=== PATIENT | female | born 1955 | race Caucasian/White ===

== ENCOUNTER 2019-04-11 02:41 | Emergency (ER) | payer MEDICARE, BC ==
--- OUTSIDE RECORDS SUMMARY | 2019-04-11 02:47 | XMS REPORT | Continuity of Care Document ---
:1955 External Reference #:[id number] Author Name Sheltonlarry Georgie Care Team Providers Name Role Phone Nathalie Barrientos MD Primary Care Physician Unavailable Payers Date Identification Numbers Payment Provider Subscriber Effective: 2018 Policy Number: [id number] Medicare June Laboy PayID: [id number] [address] [place] [address] Policy Number: [id number] [facility] June Laboy PayID: [id number] [address] [place] [address] Effective: 2018 Policy Number: [id number] Medicare June Laboy Expires: 2018 PayID: [id number] [address] [place] [address] Expires: 2018 Policy Number: [id number] Medicare June Laboy PayID: [id number] [address] [facility] [place] [address] Problems Active Problems Provider Date Benign hypertension Claudia Orellana N.P. Onset: 08/14/2016 Note: as of 07/10/18 no consequences Anxiety state Gucci Rice M.D. Onset: 12/04/2015 Pure hypercholesterolemia Gucci Rice M.D. Onset: 12/04/2015 Localized, primary osteoarthritis of the Farideh Ruchi Amos Onset: 02/16/2016 pelvic region and thigh Spinal stenosis of lumbar region Bishnu Whitmore M.D. Onset: 02/26/2016 Note: had surgery Jul [address] Whitmore; in 2018 taking ibuprofen since 2007 and 800 TID since SepMay 2018; started with pain clinic second time Jun 2018 Mucopyocele Bishnu Whitmore M.D. Onset: 07/25/2016 Localized, primary osteoarthritis of the Juan Daniel Eric MD Onset: 04/02/2018 shoulder region Injury of shoulder region Juan Daniel Eric MD Onset: 09/15/2018 Family History Date Family Member(s) Observation Comments General Diabetes General Breast Cancer Father Hypercholesterolemia Age 83 Father due to Heart Disease () Mother due to Liver Disease () - DM Type II Age 66 Children 4 2 Daughters 2 Sons - 1 Son with Crohn's Disease Siblings 4 2 Sisters - High Cholesterol 1 Brother - High Cholesterol 1 Brother - MVA at age 19 Social History Type Date Description Comments Sex Unknown Marital Status Lives With Occupation Retired [employer] de[employer] ETOH Use Occasionally consumes alcohol Tobacco Use Start: Unknown Patient has never smoked Recreational Drug Use Denies Drug Use Smoking Status Reviewed: 04/01/19 Patient has never smoked Exercise Type/Frequency Exercises sporadically walks on occ; some yoga stretching Allergies, Adverse Reactions, Alerts Active Allergies Reaction Severity Comments Date Bactrim Nausea and Vomiting 10/25/2015 Medications Active Medications SIG Qnty Indications Ordering Date Provider Amoxicillin 1 three times a 30caps H66.92 Gucci Ivey 04/01/2019 500mg day for 10 days Ruchi Rice Capsules Atorvastatin Calcium take 1 tablet by 90tabs Claudia Orellana, 03/30/2019 40mg mouth at bedtime N.P. Tablets Ferrous Sulfate 1 by mouth twice 60tabs Claudia Orellana, 12/08/2018 325(65Fe) a day N.P. mg Tablets Omeprazole one on an empty 30caps Rojelio Redding 06/03/2018 40mg Capsules stomach in MD DR silverio Gil Escitalopram Oxalate Take 1 Tablet By 30tabs Claudia Orellana, 12/23/2017 10mg Mouth Once Daily N.P. Tablets Transderm-Scop (1.5 apply one patch 10units Hector Smith NP 08/18/2017 MG) behind ear every 1mg/3Days Patches 72 hours 72HR Ramipril take 1 capsule 90caps Claudia Orellana, 12/23/2016 10mg Capsules by mouth once N.P. daily Tramadol HCL 1 by mouth every 90tabs M48.06 Claudia Orellana, 03/07/2016 50mg Tablets 6 hours as N.P. needed pain Advil 4 tabs tid Unknown 02/16/2013 200mg Tablets Iron (Ferrous once daily Unknown Gluconate) 256(28Fe) mg Tablets Calcium + D Unknown Multivitamins 1 by mouth every Unknown Capsules day Lotemax as needed Unknown 0.5% Gel Ativan 1 by mouth twice 60tabs Claudia Reyna, 1mg Tablets a day as needed N.P. anxiety Valacyclovir HCL 1 by mouth daily 30tabs Claudia Varn, 1gm N.P. Tablets History Medications Atorvastatin Calcium take 1 tablet 90tabs Claudia Reyna, 12/08/2018 - 20mg by mouth at N.P. 03/30/2019 Tablets bedtime Baclofen take 1 tablet 30tabs M54.2 Claudia Orellana, 02/13/2018 - 10mg Tablets by mouth every N.P. 05/22/2018 8 hours as needed for muscle spasm Ciprofloxacin HCL one by mouth 14tabs R35.0 Claudia Orellana, 01/28/2017 - 250mg twice a day for N.P. 02/04/2017 Tablets 7 days Nitrofurantoin Monohyd 1 by mouth 14caps R35.0 Nathalie 11/21/2016 - Macro twice a day x 7 Cotton, M.D. 12/06/2016 100mg Capsules days Cephalexin one three times 42tabs Z48.89 Bishnu Whitmore, 08/09/2016 - 500mg Tablets daily for 14 M.D. 09/16/2016 days Dicloxacillin Sodium 1 PO tid 45caps B99.8 Bishnu Whitmore, 07/25/2016 - M.D. 08/12/2016 500mg Capsules Hydrocodone-Acetaminop 1-2 by mouth 60tabs B99.8 Bishnu Whitmore, 2015 - hen every 6 hours M.D. 01/28/2017 5-325mg Tablets as needed pain [place] take 1-2 tabs 28tabs Z48.89 Bishnu Whitmore, 07/19/2016 - 5-325mg Tablets by mouth every M.D. 01/22/2017 4 hours as needed for pain. Cyclobenzaprine HCL take 1 tablet 120tabs Z48.89 Claudia Lermabebo, 2015 - 10mg by mouth up to N.P. 02/13/2018 Tablets three times a day as needed Flector apply 1 patch 60units M54.5 Claudia Lermabebo, 03/27/2016 - 1.3% Patches twice a day N.P. 04/04/2016 Ramipril 1 by mouth 30caps Claudia Reyna, 03/12/2016 - 5mg Capsules every day N.P. 12/23/2016 Transderm-Scop (1.5 apply one patch 10units Claudia Reyna, 03/12/2016 - MG) behind ear N.P. 07/07/2016 1mg/3Days Patches every 72 hours 72HR Acetaminophen-Codeine one by mouth 30tabs M54.5 Claudia Reyna, 01/31/2016 - #3 every 6 hours N.P. 07/07/2016 300-30mg Tablets as needed cough Lidocaine apply to 30gm G89.4 Claudia Reyna, 12/22/2015 - 4% Cream affected area 3 N.P. 07/07/2016 or 4 times daily Metoprolol Succinate 1 by mouth 30tabs I10 Claudia Reyna, 12/22/2015 - ER every day N.P. 03/12/2016 50mg Tablets ER 24HR Duloxetine HCL 1 by mouth 30caps M54.5 Gucci Ivey 12/04/2015 - 60mg Caps every day Ruchi Rice 12/13/2015 DR Dean Duloxetine HCL take 1 capsule 60caps M54.5 Gucci E. 10/25/2015 - 30mg Caps by mouth every Ruchi Rice 12/04/2015 DR Dean morning for 1 week, then 2 tabs daily Pravastatin Sodium Take 1 Tablet 30tabs Claudia Reyna, - 10mg By Mouth Before N.P. 12/08/2018 Tablets Bed Zolpidem Tartrate 1 tab by mouth Unknown - 5mg at night as 07/07/2016 Tablets needed Effexor XR 1 by mouth Unknown - 75mg Caps ER every day 12/04/2015 24HR Nortriptyline HCL Unknown - 10mg 01/31/2016 Capsules Effexor XR 1 by mouth 30caps Claudia Lerman, - 75mg Caps ER every day N.P. 07/07/2016 24HR Medications Administered in Office Medication SIG Qnty Indications Ordering Provider Date Hyalagan Or Supartz, For oJ Delgado PA-C 03/05/2019 Intra-Articular Inject Per Dose Injection Triamcinolone (Kenalog) Jo Delgado PA-C 03/05/2019 Injection Hyalagan Or Supartz, For Juan Daniel Eric MD 02/26/2019 Intra-Articular Inject Per Dose Injection Hyalagan Or Supartz, For Juan Daniel Eric MD 02/19/2019 Intra-Articular Inject Per Dose Injection Hyalagan Or Supartz, For Juan Daniel Eric MD 02/12/2019 Intra-Articular Inject Per Dose Injection Hyalagan Or Supartz, For Juan Daniel Eric MD 02/05/2019 Intra-Articular Inject Per Dose Injection Triamcinolone (Kenalog) Juan Daniel Eric MD 09/15/2018 Injection Triamcinolone (Kenalog) Juan Daniel Eric MD 05/05/2018 Injection Triamcinolone (Kenalog) Jo Delgado PA-C 02/19/2018 Injection Depomedrol 40MG Farideh Amos M.D. 07/08/2016 Injection Depomedrol 40MG Farideh Amos M.D. 07/08/2016 Injection Depomedrol 40MG Farideh Amos M.D. 02/16/2016 Injection Influenza Virus Vaccine Unknown 06/10/2015 Injection Immunizations CPT Code Status Date Vaccine Reaction Lot # [id number] Given 12/01/2018 Pneumococcal Conjugate pt. tolerated well. [id number] Vaccine 13 Valent For Intramuscular Use 79197 Given 06/16/2018 Influenza Virus Vaccine, Quadrivalent, Split, Preservative Free 45467 Given 11/19/2017 Tdap - No allergies noted - no [id number] Tetanus/Diptheria/Acellular immediate side effects Pertussis seen - patient tolerated well 69481 Given 07/03/2017 Influenza Virus Vaccine, Quadrivalent, Split, Preservative Free 13673 Given 06/24/2016 Influ Virus Vaccine, no reaction noted .. [id number] Quadrivalent, Split Virus, [place] [address] Given 06/22/2013 Zoster (Zostavax) 42377 Given 10/20/2007 Tdap - Tetanus/Diptheria/Acellular Pertussis Vital Signs Date Vital Result Comment 04/01/2019 10:12am Height 64 inches 5'4" Weight 230.00 lb Heart Rate 85 /min BP Systolic 153 mmHg BP Diastolic 93 mmHg Body Temperature 97.6 F O2 % BldC Oximetry 98 % BMI (Body Mass Index) 39.5 kg/m2 03/05/2019 9:45am Height 64 inches 5'4" Weight 225.00 lb BP Systolic 124 mmHg BP Diastolic 72 mmHg Respiratory Rate 20 /min Pain Level 4 BMI (Body Mass Index) 38.6 kg/m2 02/26/2019 9:47am Height 64 inches 5'4" Weight 225.00 lb Heart Rate 82 /min BP Systolic 130 mmHg BP Diastolic 80 mmHg Respiratory Rate 16 /min Pain Level 5 BMI (Body Mass Index) 38.6 kg/m2 02/19/2019 9:44am Height 64 inches 5'4" Weight 225.00 lb Heart Rate 92 /min BP Systolic 132 mmHg BP Diastolic 100 mmHg Respiratory Rate 16 /min Pain Level 6 BMI (Body Mass Index) 38.6 kg/m2 02/12/2019 9:33am Height 64 inches 5'4" Weight 227.00 lb Heart Rate 78 /min BP Systolic 130 mmHg BP Diastolic 78 mmHg Respiratory Rate 12 /min Pain Level 4 BMI (Body Mass Index) 39.0 kg/m2 02/05/2019 10:01am Height 64 inches Weight 217.00 lb Heart Rate 88 /min BP Systolic 138 mmHg BP Diastolic 82 mmHg Body Temperature 98.5 F Pain Level 6 BMI (Body Mass Index) 37.2 kg/m2 12/01/2018 12:58pm Height 65 inches 5'5" Weight 217.50 lb Heart Rate 88 /min BP Systolic 125 mmHg BP Diastolic 78 mmHg Body Temperature 98.1 F O2 % BldC Oximetry 97 % BMI (Body Mass Index) 36.2 kg/m2 10/06/2018 10:05am Height 64 inches 5'4" Weight 214.00 lb BP Systolic 130 mmHg BP Diastolic 70 mmHg Respiratory Rate 18 /min Pain Level 0 BMI (Body Mass Index) 36.7 kg/m2 09/15/2018 1:27pm Height 64 inches 5'4" Weight 214.00 lb BP Systolic 122 mmHg BP Diastolic 68 mmHg Respiratory Rate 20 /min Pain Level 5 BMI (Body Mass Index) 36.7 kg/m2 07/10/2018 10:27am Height 64 inches 5'4" Weight 214.50 lb Heart Rate 78 /min BP Systolic 141 mmHg BP Diastolic 85 mmHg Body Temperature 97.1 F O2 % BldC Oximetry 98 % BMI (Body Mass Index) 36.8 kg/m2 06/03/2018 3:44pm Height 64 inches 5'4" Weight 212.12 lb Heart Rate 92 /min BP Systolic 136 mmHg BP Diastolic 87 mmHg Respiratory Rate 18 /min Body Temperature 97.9 F Pain Level 2 Back O2 % BldC Oximetry 96 % BMI (Body Mass Index) 36.4 kg/m2 05/22/2018 10:39am Height 64 inches 5'4" Weight 211.00 lb Heart Rate 89 /min BP Systolic 136 mmHg BP Diastolic 78 mmHg Body Temperature 98.4 F O2 % BldC Oximetry 98 % BMI (Body Mass Index) 36.2 kg/m2 05/05/2018 10:33am Height 64 inches 5'4" Weight 214.00 lb Heart Rate 72 /min BP Systolic Sitting 110 mmHg BP Diastolic Sitting 78 mmHg Respiratory Rate 16 /min Body Temperature 97.9 F Pain Level 5 BMI (Body Mass Index) 36.7 kg/m2 04/02/2018 9:36am Height 64 inches 5'4" Weight 214.00 lb BP Systolic 130 mmHg BP Diastolic 88 mmHg Respiratory Rate 18 /min Pain Level 5 BMI (Body Mass Index) 36.7 kg/m2 02/19/2018 10:00am Height 64 inches 5'4" Weight 214.00 lb Respiratory Rate 16 /min Body Temperature 97.7 F Pain Level 5 BMI (Body Mass Index) 36.7 kg/m2 02/13/2018 2:25pm Weight 214.00 lb Heart Rate 91 /min BP Systolic 124 mmHg BP Diastolic 80 mmHg Body Temperature 97.8 F Pain Level 6 O2 % BldC Oximetry 96 % 11/19/2017 10:29am Weight 202.50 lb Heart Rate 86 /min BP Systolic 116 mmHg BP Diastolic 66 mmHg Body Temperature 97.4 F O2 % BldC Oximetry 97 % 01/28/2017 1:30pm Weight 201.00 lb Heart Rate 76 /min BP Systolic Sitting 118 mmHg BP Diastolic Sitting 68 mmHg Body Temperature 98.5 F O2 % BldC Oximetry 94 % 12/23/2016 11:10am Heart Rate 68 /min BP Systolic 148 mmHg BP Diastolic 92 mmHg Body Temperature 97.3 F O2 % BldC Oximetry 98 % 11/21/2016 11:03am Weight 200.00 lb with shoes Heart Rate 92 /min BP Systolic 144 mmHg BP Diastolic 110 mmHg O2 % BldC Oximetry 98 % 09/16/2016 10:05am Height 64 inches 5'4" Weight 192.00 lb Heart Rate 78 /min BP Systolic Sitting 158 mmHg BP Diastolic Sitting 80 mmHg Pain Level 4 BMI (Body Mass Index) 33.0 kg/m2 08/14/2016 9:14am Height 64 inches 5'4" Weight 192.00 lb Heart Rate 88 /min BP Systolic Sitting 128 mmHg BP Diastolic Sitting 80 mmHg Respiratory Rate 15 /min O2 % BldC Oximetry 98 % BMI (Body Mass Index) 33.0 kg/m2 08/12/2016 10:14am Height 65 inches 5'5" Weight 196.00 lb BP Systolic Sitting 140 mmHg BP Diastolic Sitting 70 mmHg Body Temperature 98.6 F BMI (Body Mass Index) 32.6 kg/m2 08/09/2016 1:39pm Height 65 inches 5'5" Weight 196.00 lb Heart Rate 70 /min Body Temperature 98.0 F Pain Level 3 BMI (Body Mass Index) 32.6 kg/m2 08/07/2016 8:46am Height 65 inches 5'5" Weight 196.00 lb Heart Rate 82 /min BP Systolic Sitting 122 mmHg BP Diastolic Sitting 84 mmHg Body Temperature 98.9 F Pain Level 1 BMI (Body Mass Index) 32.6 kg/m2 08/05/2016 9:01am Height 65 inches 5'5" Weight 196.00 lb Heart Rate 88 /min BP Systolic Sitting 140 mmHg BP Diastolic Sitting 90 mmHg Pain Level 2 BMI (Body Mass Index) 32.6 kg/m2 07/31/2016 8:46am Height 65 inches 5'5" Weight 196.00 lb Heart Rate 78 /min Body Temperature 97.0 F Pain Level 2 BMI (Body Mass Index) 32.6 kg/m2 07/29/2016 9:02am Height 65 inches 5'5" Weight 196.00 lb Heart Rate 84 /min BP Systolic Sitting 140 mmHg BP Diastolic Sitting 94 mmHg Body Temperature 97.0 F Pain Level 2 BMI (Body Mass Index) 32.6 kg/m2 07/26/2016 11:00am Height 65 inches 5'5" Weight 196.00 lb Heart Rate 72 /min BP Systolic Sitting 124 mmHg BP Diastolic Sitting 80 mmHg Body Temperature 98.6 F Pain Level 4 BMI (Body Mass Index) 32.6 kg/m2 07/25/2016 3:13pm Height 65 inches 5'5" Weight 196.00 lb Heart Rate 78 /min BP Systolic Sitting 124 mmHg BP Diastolic Sitting 80 mmHg Body Temperature 100.6 F BMI (Body Mass Index) 32.6 kg/m2 07/19/2016 11:29am Height 65 inches 5'5" Weight 196.00 lb BP Systolic Sitting 140 mmHg BP Diastolic Sitting 80 mmHg Pain Level 2 BMI (Body Mass Index) 32.6 kg/m2 07/08/2016 1:54pm Height 65 inches 5'5" Heart Rate 96 /min BP Systolic 143 mmHg BP Diastolic 88 mmHg 06/24/2016 1:47pm Height 65 inches 5'5" Weight 196.00 lb Heart Rate 78 /min BP Systolic Sitting 126 mmHg BP Diastolic Sitting 80 mmHg Pain Level 3 BMI (Body Mass Index) 32.6 kg/m2 03/27/2016 10:16am Weight 206.00 lb Heart Rate 66 /min BP Systolic Sitting 128 mmHg BP Diastolic Sitting 82 mmHg Respiratory Rate 15 /min Body Temperature 97.8 F O2 % BldC Oximetry 98 % 03/15/2016 1:15pm Height 65 inches 5'5" Weight 208.00 lb Heart Rate 88 /min BP Systolic 135 mmHg BP Diastolic 84 mmHg Pain Level 3 BMI (Body Mass Index) 34.6 kg/m2 03/07/2016 11:28am Height 65 inches 5'5" Weight 203.00 lb Heart Rate 72 /min BP Systolic Sitting 130 mmHg BP Diastolic Sitting 70 mmHg Pain Level 4 BMI (Body Mass Index) 33.8 kg/m2 02/26/2016 9:48am Height 65 inches 5'5" Weight 203.00 lb Heart Rate 62 /min BP Systolic Sitting 136 mmHg BP Diastolic Sitting 90 mmHg Pain Level 5 BMI (Body Mass Index) 33.8 kg/m2 02/16/2016 8:31am Height 65 inches 5'5" Weight 208.00 lb Pain Level 8 BMI (Body Mass Index) 34.6 kg/m2 01/31/2016 1:27pm Weight 208.00 lb Heart Rate 68 /min BP Systolic Sitting 128 mmHg BP Diastolic Sitting 84 mmHg Respiratory Rate 15 /min Body Temperature 99.0 F O2 % BldC Oximetry 98 % 12/22/2015 2:22pm Heart Rate 77 /min BP Systolic 152 mmHg BP Diastolic 87 mmHg Body Temperature 97.4 F O2 % BldC Oximetry 98 % 12/04/2015 9:53am Height 64.5 inches 5'4.50" Weight 211.00 lb Heart Rate 84 /min BP Systolic 142 mmHg BP Diastolic 100 mmHg Body Temperature 98.4 F O2 % BldC Oximetry 98 % BMI (Body Mass Index) 35.7 kg/m2 10/25/2015 8:54am Height 64.5 inches 5'4.50" Weight 208.00 lb Heart Rate 73 /min BP Systolic Sitting 132 mmHg BP Diastolic Sitting 78 mmHg Body Temperature 98.8 F O2 % BldC Oximetry 97 % BMI (Body Mass Index) 35.1 kg/m2 Results Test Date Facility Test Result H/L Range Note Lipid Profile 03/30/2019 [facility] Triglycerides 162 mg/dL 1 (Trig/Chol/HDL) [address] [place] [address] [phone] Cholesterol 229 mg/dL 2 HDL Cholesterol 91.4 mg/dL 3 LDL Cholesterol 105 mg/dL 4 Liver Function 03/30/2019 [facility] Total Protein 6.2 g/dL Low 6.4-8.9 Panel [address] [place] [address] [phone] Albumin 3.8 g/dL N 3.2-5.2 Globulin 2.4 g/dL N 2-4 Albumin/Globulin Ratio 1.6 N 1-3 Total Bilirubin 0.30 mg/dL N 0.2-1.0 Direct Bilirubin 0.10 mg/dL N 0.03-0.18 Indirect Bilirubin 0.2 mg/dL Low 0.3-1.0 Alkaline Phosphatase 85 U/L N 34-104 Alt 33 U/L N 7-52 Ast 35 U/L N 13-39 Laboratory test 12/03/2018 [facility] Ferritin 3.9 ng/mL Low 11-[address] [place] [address] [phone] Vitamin B12 250 pg/mL N 180-914 5 Vitamin E Level 16.8 mg/L 5.5 - 17.0 6 CBC Auto Diff 12/03/2018 [facility] White Blood 4.3 10^3/uL N 3.5-10.[address] [place] [address] [phone] Red Blood Count 4.24 10^6/uL N 3.70-4.87 Hemoglobin 13.3 g/dL N 12.0-16.0 Hematocrit 40 % N 33-41 Mean Corpuscular Volume 93 fL N 80-97 Mean Corpuscular Hemoglobin 31 pg N 27-31 Mean Corpuscular HGB Conc 34 g/dL N 31-36 Red Cell Distribution Width 16 % High 10.5-15 Platelet Count 330 10^3/uL N 150-450 Mean Platelet Volume 8.9 fL N 7.4-10.4 Abs Neutrophils 2.0 10^3/uL N 1.5-7.7 Abs Lymphocytes 1.4 10^3/uL N 1.0-4.8 Abs Monocytes 0.3 10^3/uL N 0-0.8 Abs Eosinophils 0.5 10^3/uL N 0-0.6 Abs Basophils 0.1 10^3/uL N 0-0.2 Abs Nucleated RBC 0 10^3/uL Granulocyte % 47.9 % Lymphocyte % 32.8 % Monocyte % 6.5 % Eosinophil % 11.1 % Basophil % 1.7 % Nucleated Red Blood Cells % 0.1 Comp Metabolic Panel 12/03/2018 [facility] Sodium 141 mmol/L N 135-[address] [place] [address] [phone] Potassium 4.6 mmol/L N 3.5-5.0 Chloride 102 mmol/L N 101-111 Co2 Carbon Dioxide 29 mmol/L N 22-32 Anion Gap 10 mmol/L N 2-11 Glucose 94 mg/dL N 70-100 Blood Urea Nitrogen 22 mg/dL N 6-24 Creatinine 0.74 mg/dL N 0.51-0.95 BUN/Creatinine Ratio 29.7 High 8-20 Calcium 9.0 mg/dL N 8.6-10.3 Total Protein 6.6 g/dL N 6.4-8.9 Albumin 4.2 g/dL N 3.2-5.2 Globulin 2.4 g/dL N 2-4 Albumin/Globulin Ratio 1.8 N 1-3 Total Bilirubin 0.30 mg/dL N 0.2-1.0 Alkaline Phosphatase 83 U/L N 34-104 Alt 32 U/L N 7-52 Ast 34 U/L N 13-39 Egfr Non- 78.8 >60 Egfr 95.3 >60 7 Lipid Profile 12/03/2018 [facility] Triglycerides 167 mg/dL 8 (Trig/Chol/HDL) [address] [place] [address] [phone] Cholesterol 284 mg/dL 9 HDL Cholesterol 94.0 mg/dL 10 LDL Cholesterol 157 mg/dL 11 Laboratory test 06/08/2018 [facility] Clotest SEE RESULT 12 , [address] [place] [address] [phone] Laboratory test 06/08/2018 [facility] Surgical SEE RESULT 14, [address] [place] [place] [address] Order [phone] Stool Occult 06/08/2018 [facility] Stool Occult SEE RESULT 16, 17 Blood Diag [address] Blood, [place] [address] [phone] CBC Auto Diff 05/22/2018 [facility] White Blood 6.7 10^3/uL N 3.5-[address] Count 0.8 [place], [place] [id number] [phone] Red Blood Count 3.35 10^6/uL Low 4.00-5.40 Hemoglobin 10.7 g/dL Low 12.0-16.0 Hematocrit 32 % Low 35-47 Mean Corpuscular Volume 96 fL N 80-97 Mean Corpuscular Hemoglobin 32 pg High 27-31 Mean Corpuscular HGB Conc 33 g/dL N 31-36 Red Cell Distribution Width 15 % N 10.5-15 Platelet Count 393 10^3/uL N 150-450 Mean Platelet Volume 8.1 um3 N 7.4-10.4 Abs Neutrophils 4.1 10^3/uL N 1.5-7.7 Abs Lymphocytes 1.6 10^3/uL N 1.0-4.8 Abs Monocytes 0.6 10^3/uL N 0-0.8 Abs Eosinophils 0.4 10^3/uL N 0-0.6 Abs Basophils 0 10^3/uL N 0-0.2 Abs Nucleated RBC 0 10^3/uL Granulocyte % 61.6 % N 38-83 Lymphocyte % 23.8 % Low 25-47 Monocyte % 8.7 % High 0-7 Eosinophil % 5.2 % N 0-6 Basophil % 0.7 % N 0-2 Nucleated Red Blood Cells % 0 Laboratory test 05/22/2018 [facility] Ferritin 5.3 ng/mL Low 11-307 finding [address] [place] [address] [phone] TSH (Thyroid Stim Horm) 1.49 mcIU/mL N 0.34-5.60 Comp Metabolic Panel 05/22/2018 [facility] Sodium 140 mmol/L N 135-145 [address] [place] [address] [phone] Potassium 4.9 mmol/L N 3.5-5.0 Chloride 106 mmol/L N 101-111 Co2 Carbon Dioxide 29 mmol/L N 22-32 Anion Gap 5 mmol/L N 2-11 Calcium 8.7 mg/dL N 8.6-10.3 Albumin 4.0 g/dL N 3.2-5.2 Total Bilirubin 0.30 mg/dL N 0.2-1.0 Glucose 90 mg/dL N 70-100 Blood Urea Nitrogen 24 mg/dL N 6-24 Creatinine 0.75 mg/dL N 0.51-0.95 BUN/Creatinine Ratio 32.0 High 8-20 Total Protein 6.5 g/dL N 6.4-8.9 Globulin 2.5 g/dL N 2-4 Albumin/Globulin Ratio 1.6 N 1-3 Alkaline Phosphatase 55 U/L N 34-104 Alt 29 U/L N 7-52 Ast 32 U/L N 13-39 Egfr Non- 77.8 >60 Egfr 94.1 >60 18 Lipid Profile 11/12/2017 [facility] Triglycerides 135 mg/dL 19 (Trig/Chol/HDL) [address] [place] [address] [phone] Cholesterol 200 mg/dL 20 HDL Cholesterol 71.4 mg/dL 21 LDL Cholesterol 102 mg/dL 22 Comp Metabolic Panel 11/12/2017 [facility] Sodium 139 mmol/L N 133-[address] [place], [place] [id number] [phone] Potassium 4.4 mmol/L N 3.5-5.0 Chloride 105 mmol/L N 101-111 Co2 Carbon Dioxide 27 mmol/L N 22-32 Anion Gap 7 mmol/L N 2-11 Glucose 100 mg/dL N 70-100 Blood Urea Nitrogen 19 mg/dL N 6-24 Creatinine 0.71 mg/dL N 0.51-0.95 BUN/Creatinine Ratio 26.8 High 8-20 Calcium 9.5 mg/dL N 8.6-10.3 Total Protein 6.8 g/dL N 6.4-8.9 Albumin 4.2 g/dL N 3.2-5.2 Globulin 2.6 g/dL N 2-4 Albumin/Globulin Ratio 1.6 N 1-3 Total Bilirubin 0.40 mg/dL N 0.2-1.0 Alkaline Phosphatase 59 U/L N 34-104 Alt 31 U/L N 7-52 Ast 35 U/L N 13-39 Egfr Non- 82.9 >60 Egfr 106.6 >60 23 Laboratory test 11/12/2017 [facility] Vitamin D 38.5 ng/mL N 20-50 [address] Total 25(Oh) [place] [address] [phone] Vitamin B12 792 pg/mL N 180-914 25 Urine Culture And 01/28/2017 [facility] Urine Culture SEE RESULT [address] [place], [place] [id number] [phone] Ua Routine 01/28/2017 [facility] Ua Specific 1.005 [place] Ua PH 6 Ua Color yellow Ua Appera cloudy Ua WBC ++ Ua Protein trace Ua Glucose neg Ua Ketones neg Ua Bilirubin neg Ua Urobilinogen normal Ua Nitrite neg Ua Occult Blood large Urine Culture And 11/21/2016 [facility] Urine Culture SEE RESULT [address] [place] [address] [phone] Laboratory test 11/21/2016 [facility] Gardnerella/Ye SEE RESULT [address] ast: [place] [address] Dna [phone] Ua Routine 11/21/2016 [facility] Ua Specific 1.010 [place] Ua PH 6 Ua Color yellow Ua Appera cloudy Ua WBC large Ua Protein large Ua Glucose neg Ua Ketones neg Ua Urobilinogen neg Ua Nitrite neg Ua Occult Blood large Vitamin B6 10/31/2016 [facility] Pyridoxal 5-Phosphate 27 g/L N 5-[address] [place] [address] [phone] Pyridoxic Acid 30 g/L N 3-30 30 Laboratory test 10/31/2016 [facility] Vitamin D 34.9 ng/mL N 30-[address] Total 25(Oh) [place] [address] [phone] Ferritin < 10.0 ng/mL Low 11-307 Laboratory test 08/14/2016 [facility] Vitamin D 28.5 ng/mL Low 30-[address] Total 25(Oh) [place] [address] [phone] Vitamin E Level 10.6 mg/L N 5.5 - 17.0 31 Vitamin B6 08/14/2016 [facility] Pyridoxal 4 g/L Abnormal 5- [address] [place] [address] [phone] Pyridoxic Acid 4 g/L N 3-30 33 Laboratory test 08/14/2016 [facility] Magnesium 2.0 mg/dL N 1.9-2.[address] [place] [address] [phone] Vitamin B12 279 pg/mL N 180-914 34 Iron & Iron Binding 08/14/2016 [facility] Iron 113 g/dL N 50 -[address] [place] [address] [phone] Unsaturated Iron Binding 282 g/dL N Total Iron Binding Capacity 395 g/dL N 250-450 % Iron Saturation 29 % N 15-55 Laboratory test 08/14/2016 [facility] Ferritin < 10.0 Low 11- [address] ng/[place] [address] [phone] CBC Auto Diff 08/14/2016 [facility] White Blood 4.8 N 3.5- 10.[address] Count 10^3/[place] [address] [phone] Red Blood Count 4.20 10^6/uL N 4.0-5.4 Hemoglobin 12.5 g/dL N 12.0-16.0 Hematocrit 38 % N 35-47 Mean Corpuscular Volume 90 fL N 80-97 Mean Corpuscular Hemoglobin 30 pg N 27-31 Mean Corpuscular HGB Conc 33 g/dL N 31-36 Red Cell Distribution Width 15 % N 10.5-15 Platelet Count 351 10^3/uL N 150-450 Mean Platelet Volume 8 um3 N 7.4-10.4 Abs Neutrophils 2.3 10^3/uL N 1.5-7.7 Abs Lymphocytes 1.4 10^3/uL N 1.0-4.8 Abs Monocytes 0.3 10^3/uL N 0-0.8 Abs Eosinophils 0.7 10^3/uL High 0-0.6 Abs Basophils 0.1 10^3/uL N 0-0.2 Abs Nucleated RBC 0 10^3/uL N Granulocyte % 48.1 % N 38-83 Lymphocyte % 29.2 % N 25-47 Monocyte % 6.5 % N 1-9 Eosinophil % 14.3 % High 0-6 Basophil % 1.9 % N 0-2 Nucleated Red Blood Cells % 0 N Wound 07/25/2016 [facility] Wound/Misc SEE RESULT 35 Culture/Sensi [address] [address] Stain [phone] Basic Metabolic 07/02/2016 [facility] Sodium 139 mmol/L N 133 - Panel [address] [place], [place] [id number] [phone] Potassium 4.6 mmol/L N 3.5-5.0 Chloride 104 mmol/L N 101-111 Co2 Carbon Dioxide 29 mmol/L N 22-32 Anion Gap 6 mmol/L N 2-11 Glucose 97 mg/dL N 70-100 Blood Urea Nitrogen 15 mg/dL N 6-24 Creatinine 0.72 mg/dL N 0.51-0.95 BUN/Creatinine Ratio 20.8 High 8-20 Calcium 9.3 mg/dL N 8.6-10.3 Egfr Non- 81.8 N >60 Egfr 105.2 N >60 36 CBC No Diff 07/02/2016 [facility] White Blood 4.4 10^3/uL N 3.5-10.[address] [place] [address] [phone] Red Blood Count 4.68 10^6/uL N 4.0-5.4 Hemoglobin 14.0 g/dL N 12.0-16.0 Hematocrit 42 % N 35-47 Mean Corpuscular Volume 90 fL N 80-97 Mean Corpuscular Hemoglobin 30 pg N 27-31 Mean Corpuscular HGB Conc 33 g/dL N 31-36 Red Cell Distribution Width 14 % N 10.5-15 Platelet Count 279 10^3/uL N 150-450 Mean Platelet Volume 9 um3 N 7.4-10.4 Comp Metabolic Panel 03/25/2016 [facility] Sodium 140 mmol/L N 133-145 37 [address] [place] [address] [phone] Potassium 4.2 mmol/L N 3.5-5.0 Chloride 106 mmol/L N 101-111 Co2 Carbon Dioxide 28 mmol/L N 22-32 Anion Gap 6 mmol/L N 2-11 Glucose 90 mg/dL N 70-100 Blood Urea Nitrogen 18 mg/dL N 6-24 Creatinine 0.71 mg/dL N 0.51-0.95 BUN/Creatinine Ratio 25.4 High 8-20 Calcium 8.9 mg/dL N 8.6-10.3 Total Protein 6.7 g/dL N 6.4-8.9 Albumin 4.1 g/dL N 3.2-5.2 Globulin 2.6 g/dL N 2-4 Albumin/Globulin Ratio 1.6 N 1-3 Total Bilirubin 0.40 mg/dL N 0.2-1.0 Alkaline Phosphatase 69 U/L N 34-104 Alt 22 U/L N 7-52 Ast 29 U/L N 13-39 Egfr Non- 83.4 N >60 Egfr 107.3 N >60 38 Lipid Profile 03/25/2016 [facility] Triglycerides 153 mg/dL N 39 (Trig/Chol/HDL) [address] [place] [address] [phone] Cholesterol 233 mg/dL N 40 HDL Cholesterol 83.0 mg/dL N 41 LDL Cholesterol 119 mg/dL N 42 1 Desirable: <150 Borderline High: 150-199 High: 200-499 Very High: >500 2 Desirable: <200 Borderline High: 200-239 High: >239 3 Low: <40 Desirable: 40-60 High: >60 4 Desirable: <100 Near Optimal: 100-129 Borderline High: 130-159 High: 160-189 Very High: >189 5 Normal Range 180 to 914 Indeterminate Range 145 to 180 Deficient Range <145 6 ADDITIONAL INFORMATION This test was developed and its performance characteristics determined by [facility] in a manner consistent with CLIA requirements. This test has not been cleared or approved by the U.S. Food and Drug Administration. Test Performed by: [facility] [address] [place] [address] 7 Because ethnic data is not always readily available, this report includes an eGFR for both -Americans and non- Americans. The National Kidney Disease Education Program (NKDEP) does not endorse the use of the MDRD equation for patients that are not between the ages of 18 and 70, are , have extremes of body size, muscle mass, or nutritional status, or are non- or non-. According to the National Kidney Foundation, irrespective of diagnosis, the stage of the disease is based on the level of kidney function: Stage Description GFR(mL/min/1.73 m(2)) 1 Kidney damage with normal or decreased GFR 90 2 Kidney damage with mild decrease in GFR 60-89 3 Moderate decrease in GFR 30-59 4 Severe decrease in GFR 15-29 5 Kidney failure <15 (or dialysis) 8 Desirable: <150 Borderline High: 150-199 High: 200-499 Very High: >500 9 Desirable: <200 Borderline High: 200-239 High: >239 10 Low: <40 Desirable: 40-60 High: >60 11 Desirable: <100 Near Optimal: 100-129 Borderline High: 130-159 High: 160-189 Very High: >189 12 [id number] 13 SEE RESULT BELOW Name: JUNE LABOY : [address]: Rojelio Gil MD Acct: [id number] Unit: [id number] AGE: 62 Location: [facility] Re06/08/18 SEX: F Status: DEP REF SPEC: [id number] SHASTA: 06/08/[address] [facility] [address]: Rojelio Gil MD REQ: [id number] RECD: 06/08/18 STATUS: EM LOZADA DR: Nathalie Orellana THREE KNIFE TRIMMER _ SOURCE: GAS ANTRUM SPDESC: ORDERED: Clotest COMMENTS: [id number] Procedure Result Reported Site Clotest Final 06/09/18736 ML Clotest Negative * - Main Lab . END OF REPORT DEPARTMENT OF PATHOLOGY, [address] [place] [address] Lazaro Paulson M.D. Director [facility] # [id number] 14 [id number] 15 SEE RESULT BELOW Name: JUNE LABOY : [address]: Rojelio Gil MD Acct: [id number] Unit: [id number] AGE: 62 Location: [facility] Re06/08/18 SEX: F Status: DEP REF SPEC: [id number] SHASTA: 06/08/[address] [facility] [address]: Rojelio Gil MD REQ: [id number] RECD: 06/08/18 STATUS: LINDSAY LOZADA DR: Nathalie Orellana THREE KNIFE TRIMMER _ ORDERED: LEVEL 4/2 COMMENTS: [id number] FINAL DIAGNOSIS 1. Jejunal nodule, biopsy: -- Benign small intestinal mucosa with no significant pathologic abnormalities. 2. Jejunum, random, biopsy: -- Benign small intestinal mucosa with no significant pathologic abnormalities. -- No evidence of villous blunting or increased intraepithelial lymphocytes. CLINICAL HISTORY Iron deficiency anemia POST-OPERATIVE DIAGNOSIS EGD: larynx ? normal; esophagus ? normal esophagogastric junction 38 cm, snug ; pouch ? none, CLOtest, biopsy; anastomosis ? no ulcer, no blood; jejunum ? nodule approximately 12 cm down, biopsy (2), biopsy (2) ? random; conclusions: status post gastrointestinal bleed; gastritis; jejunal nodule; iron deficiency anemia ? biopsy pending GROSS DESCRIPTION 1. The specimen is received in formalin labeled, Biopsy Jejunal Nodule, and consists of two li-pink irregular soft tissue fragments measuring 0.3 x 0.1 x 0.1 cm and 0.3 x 0.3 x 0.3 cm which are submitted entirely in one cassette. 2. The specimen is received in formalin labeled, Biopsy Jejunal Random, and consists of a 0.6 x 0.4 x 0.2 cm aggregate of li-pink irregular soft tissue fragments which is submitted entirely in one cassette. CONTINUED ON NEXT PAGE DEPARTMENT OF PATHOLOGY, [address] [place] [address] Lazaro Paulson M.D. Director [facility] # [id number] RUN DATE: 06/09/18 [facility] LAB LIVE PAGE 2 Patient: JUNE LABOY [id number] (Continued) GROSS DESCRIPTION (Continued) Signed by and Reported on: Ibeth Connolly MD 06/09/18 1001 END OF REPORT DEPARTMENT OF PATHOLOGY, [address] [place] [address] Lazaro Paulson M.D. Director [facility] # [id number] 16 [id number] 17 SEE RESULT BELOW Name: JUNE LABOY : [address]: Rojelio Gil MD Acct: [id number] Unit: [id number] AGE: 62 Location: [facility] Re06/08/18 SEX: F Status: REG REF SPEC: [id number] SHASTA: 06/08/[address] [facility] [address]: Rojelio Gil MD REQ: [id number] RECD: 06/08/18 STATUS: EM LOZADA DR: Nathalie Orellana THREE KNIFE TRIMMER _ SOURCE: STOOL SPDESC: ORDERED: Occult Bl, Diag COMMENTS: [id number] Procedure Result Reported Site Stool Occult Blood (1) Final 06/08/18- 1143 ML Stool Occult Blood Negative * ML - Main Lab . END OF REPORT DEPARTMENT OF PATHOLOGY, [address] [place] [address] Lazaro Paulson M.D. Director [facility] # [id number] 18 Because ethnic data is not always readily available, this report includes an eGFR for both -Americans and non- Americans. The National Kidney Disease Education Program (NKDEP) does not endorse the use of the MDRD equation for patients that are not between the ages of 18 and 70, are , have extremes of body size, muscle mass, or nutritional status, or are non- or non-. According to the National Kidney Foundation, irrespective of diagnosis, the stage of the disease is based on the level of kidney function: Stage Description GFR(mL/min/1.73 m(2)) 1 Kidney damage with normal or decreased GFR 90 2 Kidney damage with mild decrease in GFR 60-89 3 Moderate decrease in GFR 30-59 4 Severe decrease in GFR 15-29 5 Kidney failure <15 (or dialysis) 19 Desirable: <150 Borderline High: 150-199 High: 200-499 Very High: >500 20 Desirable: <200 Borderline High: 200-239 High: >239 21 Low: <40 Desirable: 40-60 High: >60 22 Desirable: <100 Near Optimal: 100-129 Borderline High: 130-159 High: 160-189 Very High: >189 23 Because ethnic data is not always readily available, this report includes an eGFR for both -Americans and non- Americans. The National Kidney Disease Education Program (NKDEP) does not endorse the use of the MDRD equation for patients that are not between the ages of 18 and 70, are , have extremes of body size, muscle mass, or nutritional status, or are non- or non-. According to the National Kidney Foundation, irrespective of diagnosis, the stage of the disease is based on the level of kidney function: Stage Description GFR(mL/min/1.73 m(2)) 1 Kidney damage with normal or decreased GFR 90 2 Kidney damage with mild decrease in GFR 60-89 3 Moderate decrease in GFR 30-59 4 Severe decrease in GFR 15-29 5 Kidney failure <15 (or dialysis) 24 FASTING 10 HOUR 25 Normal Range 180 to 914 Indeterminate Range 145 to 180 Deficient Range <145 26 SEE RESULT BELOW Name: JUNE LABOY : [address]: Claudia Orellana NP Acct: [id number] Unit: [id number] AGE: 61 Location: [facility] Re01/28/17 SEX: F Status: REG REF SPEC: [id number] SHASTA: 01/28/17-[address] [facility] [address]: Claudia Orellana NP REQ: [id number] RECD: 01/28/17 STATUS: COMP _ SOURCE: URINE SPDESC: ORDERED: Urine Culture COMMENTS: [id number] Urine Source: Random Procedure Result Reported Site Urine Culture Final 01/31/17- 0830 ML Organism 1 CITROBACTER KOSERI [place] Count 10-25,000 (Moderate) CFU/ML Organism 2 NORMAL MARISSA [place] Count 1-10,000 (Few) CFU/ML 1. CITROBACTER KOSERI M.I.C. RX --------- ------ Cefazolin <=4 S Cefepime <=1 S Ceftriaxone <=1 S Ciprofloxacin <=0.25 S Gentamicin <=1 S Levofloxacin <=0.12 S Meropenem <=0.25 S Nitrofurantoin <=16 S Tetracycline <=1 S Pipercillin/Tazobactam <=4 S Trimethoprim/Sulfamethoxazole <=20 S Amoxicillin/Clavulanic Acid 4 S Aztreonam <=1 S Contact the Microbiology Department for any additional antibiotic reporting. * ML - MAIN LAB ([facility]) . END OF REPORT * ML=Testing performed at Main Lab DEPARTMENT OF PATHOLOGY, [address] [place] [address] Lazaro Paulson M.D. Director [facility] # [id number] 27 SEE RESULT BELOW Name: JUNE LABOY : [address]: Nathalie Barrientos MD Acct: [id number] Unit: [id number] AGE: 61 Location: [facility] Re11/21/16 SEX: F Status: REG REF SPEC: [id number] SHASTA: 11/21/16-11[address] [facility] [address]: Nathalie Barrientos MD REQ: [id number] RECD: 11/21/16 STATUS: COMP _ SOURCE: URINE SPDESC: ORDERED: Urine Culture Urine Source: Random Procedure Result Reported Site Urine Culture Final 11/23/16- 0825 ML Organism 1 ESCHERICHIA COLI [place] Count 50-75,000 (Many) CFU/ML 1. ESCHERICHIA COLI M.I.C. RX --------- ------ Ampicillin <=2 S Cefazolin <=4 S Cefepime <=1 S Ceftriaxone <=1 S Ciprofloxacin <=0.25 S Gentamicin <=1 S Levofloxacin <=0.12 S Meropenem <=0.25 S Nitrofurantoin <=16 S Tetracycline <=1 S Pipercillin/Tazobactam <=4 S Trimethoprim/Sulfamethoxazole <=20 S Amoxicillin/Clavulanic Acid <=2 S Aztreonam <=1 S Contact the Microbiology Department for any additional antibiotic reporting. * ML - MAIN LAB ([facility]) . END OF REPORT * ML=Testing performed at Main Lab DEPARTMENT OF PATHOLOGY, [address] [place] [address] Lazaro Paulson M.D. Director [facility] # [id number] 28 SEE RESULT BELOW Name: JUNE LABOY : [address]: Nathalie Barrientos MD Acct: [id number] Unit: [id number] AGE: 61 Location: [facility] Re11/21/16 SEX: F Status: REG REF SPEC: [id number] SHASTA: 11/21/16-11[address] [facility] [address]: Nathalie Barrientos MD REQ: [id number] RECD: 11/21/16 STATUS: COMP _ SOURCE: VAGINAL SPDESC: ORDERED: Caroline,Yeast DNA, Trich DNA COMMENTS: [id number] Procedure Result Reported Site Gardnerella/Yeast: Vaginal DNA Final 11/22/16- 1457 ML Organism 1 Negative Gardnerella Organism 2 Negative Shalonda The presence of G. vaginalis, although suggestive, is not diagnostic for bacterial vaginosis. Results should be interpreted in conjuction with other clinical and laboratory data available. Women with vaginal discharge should be evaluated for risk factors of cervicitis and pelvic inflammatory disease, toxic shock syndrome (S.aureus), and if present, evaluated for organisms not included in this assay such as N. gonorrhoeae, C. trachomatis, Mobiluncus, Mycoplasma and/or Prevotella. Mixed infections may occur. The performance of this test on patient specimens collected during or immediately after antimicrobial therapy is unknown. The presence or absence of Shalonda species, or G. vaginalis cannot be used as a test for therapeutic success or failure. Trichomonas: Vaginal DNA Probe Final 11/22/16- 1502 ML Organism 1 Negative Trichomonas CONTINUED ON NEXT PAGE * ML=Testing performed at Main Lab DEPARTMENT OF PATHOLOGY, [address] [place] [address] Lazaro Paulson M.D. Director [facility] # [id number] Patient: JUNE LABOY [id number] (Continued) Specimen: [id number] Collected: 11/21/16 Received: 11/21/16 (Continued) Procedure Result Reported Site Trichomonas: Vaginal DNA Probe Final (continued) 11/22/16 150 The presence or absence of T. vaginalis cannot be used as a test for therapeutic success or failure. * ML - MAIN LAB ([facility]) . END OF REPORT * ML=Testing performed at Main Lab DEPARTMENT OF PATHOLOGY, [address] [place] [address] Lazaro Paulson M.D. Director [facility] # [id number] 29 ADDITIONAL INFORMATION This test was developed and its performance characteristics determined by [facility] in a manner consistent with CLIA requirements. This test has not been cleared or approved by the U.S. Food and Drug Administration. 30 ADDITIONAL INFORMATION This test was developed and its performance characteristics determined by [facility] in a manner consistent with CLIA requirements. This test has not been cleared or approved by the U.S. Food and Drug Administration. Test Performed by: [facility] [place] [address] Personal Consultant: Eamon Yanez II, M.D., Ph.D. 31 ADDITIONAL INFORMATION This test was developed and its performance characteristics determined by [facility] in a manner consistent with CLIA requirements. This test has not been cleared or approved by the U.S. Food and Drug Administration. Test Performed by: [facility] [place] [address] Personal Consultant: Eamon Yanez II, M.D., Ph.D. 32 ADDITIONAL INFORMATION This test was developed and its performance characteristics determined by [facility] in a manner consistent with CLIA requirements. This test has not been cleared or approved by the U.S. Food and Drug Administration. 33 ADDITIONAL INFORMATION This test was developed and its performance characteristics determined by [facility] in a manner consistent with CLIA requirements. This test has not been cleared or approved by the U.S. Food and Drug Administration. Test Performed by: [facility] - [address] [address] Personal Consultant: Eamon Yanez II, M.D., Ph.D. 34 Normal Range 180 to 914 Indeterminate Range 145 to 180 Deficient Range <145 35 SEE RESULT BELOW Name: JUNE LABOY V : [address]: Bishnu Whitmore MD Acct: [id number] Unit: [id number] AGE: 61 Location: [facility] Re07/25/16 SEX: F Status: REG REF SPEC: [id number] SHASTA: 07/25/161546 [facility] DR: Bishnu Whitmore MD REQ: [id number] RECD: 07/25/16 STATUS: COMP _ [facility]: Culture Stain Specimen Description LUMBAR INCISION Procedure Result Reported Site Wound/Misc Gram Stain Final 07/26/16- 0750 ML 4+ Neutrophils 2+ Gram Positive Cocci Wound/Misc Culture Final 07/27/16- 0935 ML Organism 1 STAPHYLOCOCCUS AUREUS Quantity 1+ 1. STAPHYLOCOCCUS AUREUS M.I.C. RX --------- ------ Penicillin >=0.5 R Clindamycin R This isolate is presumed to be resistant based on detection of inducible Clindamycin resistance. Clindamycin may still be effective in some patients. Erythromycin >=8 R Gentamicin <=0.5 S Linezolid 2 S Nitrofurantoin <=16 S Oxacillin 0.5 S * Quinupristin/Dalfopristin 0.5 S Rifampin <=0.5 S Tetracycline <=1 S Doxycycline - Deduced S * Minocycline - Deduced S CONTINUED ON NEXT PAGE * ML=Testing performed at Main Lab DEPARTMENT OF PATHOLOGY, [address] [place] [address] Lazaro Paulson M.D. Director [facility] # [id number] Patient: JUNE LABOY V [id number] (Continued) Specimen: [id number] Collected: 07/25/16 Received: 07/25/16 (Continued) Procedure Result Reported Site Wound/Misc Culture Final (continued) 07/27/16934 1. STAPHYLOCOCCUS AUREUS (continued) M.I.C. RX --------- ------ Trimethoprim/Sulfamethoxazole <=10 S Vancomycin 1 S Imipenem-Deduced S * Ampicillin/Sulbactam-Deduced S Cefazolin-Deduced S * These antibiotics are not available in the [facility] Formulary Contact the Microbiology Department for any additional antibiotic reporting. * ML - MAIN LAB ([facility]) . END OF REPORT * ML=Testing performed at Main Lab DEPARTMENT OF PATHOLOGY, [address] [place] [address] Lazaro Paulson M.D. Director [facility] # [id number] 36 Because ethnic data is not always readily available, this report includes an eGFR for both -Americans and non- Americans. The National Kidney Disease Education Program (NKDEP) does not endorse the use of the MDRD equation for patients that are not between the ages of 18 and 70, are , have extremes of body size, muscle mass, or nutritional status, or are non- or non-. According to the National Kidney Foundation, irrespective of diagnosis, the stage of the disease is based on the level of kidney function: Stage Description GFR(mL/min/1.73 m(2)) 1 Kidney damage with normal or decreased GFR 90 2 Kidney damage with mild decrease in GFR 60-89 3 Moderate decrease in GFR 30-59 4 Severe decrease in GFR 15-29 5 Kidney failure <15 (or dialysis) 37 PT IS FASTING 38 Because ethnic data is not always readily available, this report includes an eGFR for both -Americans and non- Americans. The National Kidney Disease Education Program (NKDEP) does not endorse the use of the MDRD equation for patients that are not between the ages of 18 and 70, are , have extremes of body size, muscle mass, or nutritional status, or are non- or non-. According to the National Kidney Foundation, irrespective of diagnosis, the stage of the disease is based on the level of kidney function: Stage Description GFR(mL/min/1.73 m(2)) 1 Kidney damage with normal or decreased GFR 90 2 Kidney damage with mild decrease in GFR 60-89 3 Moderate decrease in GFR 30-59 4 Severe decrease in GFR 15-29 5 Kidney failure <15 (or dialysis) 39 Desirable <150 Borderline high 150-199 High 200-499 Very High >500 40 Desirable <200 Borderline high 200-239 High >239 41 Low <40 Desirable: 40-60 High: >60 42 Desirable: <100 mg/dL Near Optimal: 100-129 mg/dL Borderline High: 130-159 mg/dL High: 160-189 mg/dL Very High: >189 mg/dL Procedures Date Code Description Status 03/05/2019 Inj/Aspir Major JT Or Bursa W/ US Completed 03/05/2019 Inject/Drain Joint/Bursa Major W/O US Completed 02/26/2019 Inj/Aspir Major JT Or Bursa W/ US Completed 02/19/2019 Inj/Aspir Major JT Or Bursa W/ US Completed 02/12/2019 Inj/Aspir Major JT Or Bursa W/ US Completed 02/05/2019 Inj/Aspir Major JT Or Bursa W/ US Completed 12/11/2018 [id number] Mammogram Completed 09/15/2018 Inj/Aspir Major JT Or Bursa W/ US Completed 06/08/2018 47811 Endoscopy Upper GI Biopsy Completed 05/05/201802429 Inject Tendon Sheath Or Ligament Aponeurosis Eg Completed Plantar Fascia 02/19/2018 Inject/Drain Joint/Bursa Major W/O US Completed 11/26/2017 [id number] Mammogram Completed 11/26/2017 [id number] Bone Mineral Density Test Completed 08/22/2016 [id number] Mammogram Completed 07/09/2016 52890 Back/Facet/Foraminotomy;Vertebral Segment; Lumbar Completed 07/09/2016 92788 Back/Facet/Foraminotomy;Vertebral Segment; Lumbar Completed 07/09/2016 85087 Back/Facet/Foraminotomy;Ea Addl Segment; Cerv, Thora, Completed Or Lumbar 07/09/2016 49344 Back/Facet/Foraminotomy;Ea Addl Segment; Cerv, Thora, Completed Or Lumbar 07/08/2016 52509 Inject/Drain Joint/Bursa Major W/O US Completed 07/02/2016 93385 EKG, Interpretation Only Completed 02/16/201637568 Inject/Drain Joint/Bursa Major W/O US Completed 12/07/2014 [id number] Colonoscopy Completed Encounters Type Date Location Provider Dx Diagnosis Office Visit 10/06/2018 Orthopedic Juan Daniel Eric MD M19.012 Primary 9:45a Services Of [facility] osteoarthritis, left shoulder S46.102A Unsp injury of musc/fasc/tend long hd bicep, left arm, init Office Visit 07/10/2018 [facility] G[facility] Rojelio [place] D50.9 Iron deficiency 10:15a MD Jeffery anemia, unspecified Z98.84 Bariatric surgery status M54.5 Low back pain Z79.899 Other emt intermediate (current) drug therapy Z86.010 Personal history of colonic polyps Office Visit 06/03/2018 [facility] Gastroenterology Rojelio [place] D64.9 Anemia, 3:30p MD Jeffery unspecified Z98.84 Bariatric surgery status E66.09 Other obesity due to excess calories F41.0 Panic disorder [episodic paroxysmal anxiety] M54.5 Low back pain Office 05/22/2018 DoNotUse [facility] Internal Claudia M54.17 Radiculopathy, Visit 10:40a Medicine-Darin Orellana, N.P. lumbosacral region I10 Essential (primary) hypertension R53.83 Other fatigue Office Visit 05/05/2018 Orthopedic Juan Daniel Eric M19.012 Primary 10:30a Services Of osteoarthritis, left [facility]. shoulder M75.42 Impingement syndrome of left shoulder S46.102A Unsp injury of musc/fasc/tend long hd bicep, left arm, init M75.22 Bicipital tendinitis, left shoulder Office Visit 04/02/2018 Orthopedic Juan Daniel Eric M19.012 Primary 9:45a Services Of osteoarthritis, left [facility]. shoulder M75.42 Impingement syndrome of left shoulder Office Visit 02/19/2018 10:00a Orthopedic Juan Daniel Eric, M25.512 Pain in left Services Of shoulder [facility]. M75.42 Impingement syndrome of left shoulder M19.012 Primary osteoarthritis, left shoulder Office Visit 02/13/2018 2:20p [facility] Internal Claudia Orellana, M54.2 [facility] M25.512 Pain in left shoulder Office Visit 11/19/2017 10:40a [facility] Internal Claudia Orellana, Z00.00 Encntr for Medicine - [facility] N.P. general adult medical exam w/o abnormal findings Z12.31 Encntr screen mammogram for malignant neoplasm of breast I10 Essential (primary) hypertension E78.00 Pure hypercholesterolemia, unspecified M54.5 Low back pain Z98.84 Bariatric surgery status M85.9 Disorder of bone density and structure, unspecified F41.9 Anxiety disorder, unspecified Z23 Encounter for immunization Office Visit 01/28/2017 1:40p [facility] Internal Claudia Reyna, R35.0 Frequency of Medicine - N.P. micturition [facility] N39.0 Urinary tract infection, site not specified Office Visit 12/23/2016 11:20a [facility] Internal Claudia Varn, I10 Essential ( primary) Medicine - [facility] N.P. hypertension M54.5 Low back pain Office Visit 11/21/2016 11:20a [facility] Internal Nathalie R35.0 Frequency of Medicine - Cotton M.D. micturition [facility] I10 Essential (primary) hypertension N89.8 Other specified noninflammatory disorders of vagina Office Visit 08/14/2016 9:20a [facility] Internal Claudia Orellana, Z00.01 Encounter for Medicine - [facility] general adult medical exam w abnormal findings Z12.31 Encntr screen mammogram for malignant neoplasm of breast I10 Essential (primary) hypertension E78.00 Pure hypercholesterolemia, unspecified F41.9 Anxiety disorder, unspecified Z98.84 Bariatric surgery status M85.9 Disorder of bone density and structure, unspecified L98.9 Disorder of the skin and subcutaneous tissue, unspecified Office Visit 06/24/2016 2:00p Neurosurgery Saige Gonzalez8.06 [facility] [place] stenosis, lumbar region M51.27 Other intervertebral disc displacement, lumbosacral region Office Visit 03/27/2016 10:20a [facility] Internal Claudia Orellana, I10 Essential ( primary) Medicine - [facility]. hypertension M54.5 Low back pain Office Visit 03/15/2016 1:15p Orthopedic Farideh Amos, M70.62 [facility] bursitis, left hip C.M.A. M16.12 Unilateral primary osteoarthritis, left hip Office Visit 03/07/2016 11:45a Neurosurgery Saige Gonzalez8.06 [facility] [place] stenosis, lumbar region Office Visit 02/26/2016 10:00a Neurosurgery Saige Gonzalez8.06 [facility] M[place] stenosis, lumbar region Office Visit 02/16/2016 8:30a Orthopedic Farideh Dandre, M25.552 Pain in left [facility].AC[facility]y Hopper hip M54.5 Low back pain M70.62 Trochanteric bursitis, left hip M16.12 Unilateral primary osteoarthritis, left hip Office Visit 01/31/2016 1:20p [facility] Internal Claudia Orellana, M25.552 [facility] M54.5 Low back pain W01.0xxA Fall same lev from slip/trip w/o strike against object, init F32.9 Major depressive disorder, single episode, unspecified Office Visit 12/22/2015 2:20p [facility] Internal Claudia Orellana, G89.4 [facility] syndrome I10 Essential (primary) hypertension M54.5 Low back pain Office Visit 12/04/2015 10:00a [facility] Verito Rice M54.5 [facility] F41.9 Anxiety disorder, unspecified E78.0 Pure hypercholesterolemia Office Visit 10/25/2015 9:00a [facility] Internal Gucci Ivey Z00.00 [facility] general adult medical exam w/o abnormal findings F41.9 Anxiety disorder, unspecified M54.5 Low back pain E78.0 Pure hypercholesterolemia Plan of Treatment Future Appointment(s):04/20/2019 10:45 am - Juan Daniel Eric MD at [facility]12/07/2019 1:00 pm - Claudia Orellana N.P. at [facility]/2019 10:40 am - Claudia Orellana NCoreyPCorey at [facility] - Gucci Rice M.D.H66.92 Otitis media, unspecified, left earNew Medication:Amoxicillin 500 mg - 1 three times a day for 10 daysJ06.9 Acute upper respiratory infection, unspecified
[2019-04-11 03:03] LABS: ABS Basophils 0.1 10^3/ul (0-0.2); ABS Eosinophils 0.3 10^3/ul (0-0.6); ABS Lymphocytes 2.6 10^3/ul (1.0-4.8); ABS Monocytes 0.6 10^3/ul (0-0.8); ABS Neutrophils 2.6 10^3/ul (1.5-7.7); Eosinophil % 5.7 %; Hematocrit 39 % (35-47); Hemoglobin 13.2 g/dL (12.0-16.0); Lymphocyte % 42.1 %; Mean Corpuscular HGB Conc 34 g/dL (31-36); Mean Corpuscular Hemoglobin 32 pg (27-31); Mean Corpuscular Volume 94 fL (80-97); Mean Platelet Volume 7.7 fL (7.4-10.4); Platelet Count 332 10^3/uL (150-450); Red Blood Count 4.15 10^6 /uL (3.70-4.87); Red Cell Distribution Width 14 % (10-15); White Blood Count 6.1 10^3/uL (3.5-10.8)
--- NOTE | 2019-04-11 03:07 | ED ---
HPI Chest Pain - HPI Summary HPI Summary: This patient is a 63 year old F presenting to ED with a chief complaint of heart racing and chest pressure since two nights ago. Last night, patient woke up every 90 minutes feeling like her heart was racing. Tonight, patient similar symptoms. She woke up at 0030 this morning feeling like her heart was racing and having to force herself to breathe. She did not have skin diaphoresis, but felt hot and slightly nauseous. She then began to feel anxious. She took a half- dose of Ativan, but it did not seem to help. During the day yesterday, patient reports having chest pressure while gardening but feeling otherwise fine. After taking a break from gardening, patient felt fine. Patient has not had difficulty gardening before. In the ED room, patient reports still having the chest pressure. Symptoms aggravated by gardening. Symptoms alleviated by nothing. Patient has a history of anxiety, but the chest pressure is new. Recent stressors include her step-mom having chronic health problems. - History of Current Complaint Chief Complaint: EDChestPainROMI Time Seen by Provider: 04/11/19 02:54 Hx Obtained From: Patient Onset/Duration: Started Days Ago - Two days ago, Still Present, Worse Since Timing: Constant, Lasting Days - Since two days ago Character: Pressure/Squeezing Aggravating Factor(s): Exertion - Gardening Alleviating Factor(s): Nothing Associated Signs and Symptoms: Positive: Chest Pain, Anxiety, Recent Stress, Shortness of Breath - Feeling like she has to force herself to breathe, Nausea. Negative: Diaphoresis - Additional Pertinent History Primary Care Physician: DONADL - Allergy/Home Medications Allergies/Adverse Reactions: Allergies Allergy/AdvReac Type Severity Reaction Status Date / Time sulfamethoxazole Allergy Rash Verified 04/11/19 03:07 [From Bactrim] trimethoprim [From Bactrim] Allergy Rash Verified 04/11/19 03:07 codeine AdvReac Severe Stomach Verified 04/11/19 03:07 Pain PMH/Surg Hx/FS Hx/Imm Hx Endocrine/Hematology History: Denies: Hx Diabetes Cardiovascular History: Reports: Hx Hypercholesterolemia, Hx Hypertension - ON MEDICATION FOR Denies: Hx Pacemaker/ICD Respiratory History: Reports: Hx Asthma - HX OF IN THE PAST- GI History: Reports: Hx Hiatal Hernia - REPAIRED WITH HIATAL HERNIA, Other GI Disorders - OCCASIONAL CONSTIPATION/OCCASIONAL GI UPSET History: Denies: Hx Renal Disease Musculoskeletal History: Reports: Hx Arthritis - BACK, Hx Back Problems, Hx Bursitis - HIPS, Hx Tendonitis - ELBOWS, Other Musculoskeletal History - STENOSIS Denies: Hx Osteoporosis Sensory History: Reports: Hx Contacts or Glasses Denies: Hx Hearing Aid Opthamlomology History: Reports: Hx Contacts or Glasses Neurological History: Reports: Other Neuro Impairments/Disorders - PAIN CLINIC PATIENT Psychiatric History: Reports: Hx Anxiety, Hx Depression, Hx Panic Disorder - ANXIETY, Other Psychiatric Issues/Disorders - Patient states she is an alcoholic - Cancer History Hx Chemotherapy: No Hx Radiation Therapy: No - Surgical History Surgery Procedure, Year, and Place: Tubal ligation 1981. Cholecystectomy 2004. Hysterectomy 2002. Gastric bypass w/ [place] [facility] [place] 2009. Rt knee arthroscopy 2009. Eye surgery 2010-LIFTED LIDS. 07/2016 LUMBAR - STENOSIS - NO HARDWARE Hx Anesthesia Reactions: No Infectious Disease History: No Infectious Disease History: Denies: Traveled Outside the [place] in Last 30 Days - Social History Alcohol Use: Daily Alcohol Amount: 20 drinks per week Substance Use Type: Reports: None Smoking Status (MU): Never Smoked Tobacco Review of Systems Constitutional: Other - Feeling hot Negative: Skin Diaphoresis Cardiovascular: Other - Heart racing Positive: Chest Pain - Chest pressure Respiratory: Other - Have to force herself to breathe Positive: Nausea Positive: Anxious All Other Systems Reviewed And Are Negative: Yes Physical Exam - Summary Physical Exam Summary: Appearance: Well-appearing, Well-nourished, lying in bed comfortable Skin: Warm, dry, no obvious rash Eyes: sclera anicteric, no conjunctival pallor ENT: mucous membranes moist Neck: deferred Respiratory: No signs of respiratory distress Cardiovascular: Appears well perfused, pulses are nml Abdomen: deferred Musculoskeletal: Moving all 4 extremities without obvious discomfort Neurological: Awake and alert, mentation is normal, speech is fluent and appropriate Psychiatric: affect is normal, does not appear anxious or depressed Triage Information Reviewed: Yes Vital Signs On Initial Exam: Initial Vitals Pulse Pulse Ox 96 98 04/11/19 03:01 04/11/19 03:01 Vital Signs Reviewed: Yes Diagnostics - Laboratory Result Diagrams: 04/11/19 02:55 04/11/19 02:55 Lab Statement: Any lab studies that have been ordered have been reviewed, and results considered in the medical decision making process. - Radiology CXR Radiology Interpretation Completed By: ED Physician Summary of Radiographic Findings: no acute processes, pending official radiology report. - EKG 0242 Cardiac Rate: NL - 91 BPM EKG Rhythm: Sinus Rhythm ST Segment: Normal Ectopy: None Summary of EKG Findings: NSR at 91 BPM, P waves, QRS complex, and T waves are within normal limits, T waves and intervals are normal, no ischemic changes. This is a normal EKG. Re-Evaluation - Re-Evaluation First Eval Re-Evaluation Time: 06:27 Comment: Discussed results with patient. Patient will be discharged w dx of anxiety. Patient understands and agrees with this plan. Chest Pain Course/Dx - Course Course Of Treatment: This patient is a 63 year old F presenting to ED with a chief complaint of heart racing and chest pressure since two nights ago. EKG at 0242 revealed NSR at 91 BPM, P waves, QRS complex, and T waves are within normal limits, T waves and intervals are normal, no ischemic changes. This is a normal EKG. Blood work revealed MCH 32, BUN/creatinine ratio 28.0. CXR revealed no acute processes, pending official radiology report. In the ED course, patient received Ativan. Second troponin also negative. Patient will be discharged w dx of anxiety. Patient understands and agrees with this plan. - Diagnoses Provider Diagnoses: Anxiety Discharge - Sign-Out/Discharge Documenting (check all that apply): Patient Departure - Discharge Patient Received Moderate/Deep Sedation with Procedure: No - Discharge Plan Condition: Stable Disposition: HOME Patient Education Materials: Anxiety (ED) Referrals: Nathalie Barrientos MD [Primary Care Provider] - As Soon As Possible Additional Instructions: The tests we ran to look for signs that your symptoms were related to the heart were negative, so I think you are safe from a cardiac standpoint. However you clearly are having increasing troubles with anxiety that is seeping into your sleep, so I would definitely recommend you talk to your doctor about that and see what might be done to help with this. - Billing Disposition and Condition Condition: STABLE Disposition: Home - Attestation Statements Document Initiated by Scribe: Yes Documenting Scribe: Vahid Pastor Provider For Whom Scribe is Documenting (Include Credential): Israel Calvo MD Scribe Attestation: I, Vahid Pastor, scribed for Israel Calvo MD on 04/12/19 at 0531. Scribe Documentation Reviewed: Yes Provider Attestation: The documentation as recorded by the scribe, Vahid Pastor accurately reflects the service I personally performed and the decisions made by me, Israel Calvo MD Status of Scribe Document: Viewed
[2019-04-11 03:08] LABS: INR 0.88 (0.82-1.09)
[2019-04-11 03:20] LABS: Albumin 4.2 g/dL (3.2-5.2); Albumin/Globulin Ratio 1.3 (1-3); EGFR African American 84.7 (>60); Globulin 3.2 g/dL (2-4); Potassium 4.2 mmol/L (3.5-5.0); Total Bilirubin 0.2 mg/dL (0.2-1.0); Total Protein 7.4 g/dL (6.4-8.9)
[2019-04-11] MEDS ORDERED: LORazepam TAB(*) 1 MG PO ONE (03:25)
[2019-04-11 06:41] VITALS: BP 141/97
== END 2019-04-11 06:40 | disposition home or self-care (01) ==
LOC: ED 02:41
DX: F41.9 Anxiety disorder, unspecified (principal); Z88.1 Allergy status to other antibiotic agents; Z88.5 Allergy status to narcotic agent; Z88.2 Allergy status to sulfonamides; E78.00 Pure hypercholesterolemia, unspecified; I10 Essential (primary) hypertension; J45.909 Unspecified asthma, uncomplicated; F32.9 Major depressive disorder, single episode, unspecified; Z79.899 Other long term (current) drug therapy
CPT/HCPCS: 36415; 71046; 80053; 84484; 85025; 85610; 93005; 99284; A9270-GY

== ENCOUNTER 2019-09-01 06:38 | Emergency (ER) | payer MEDICARE, BC ==
--- OUTSIDE RECORDS SUMMARY | 2019-09-01 06:47 | XMS REPORT | Continuity of Care Document ---
:1955 External Reference #:[id number] Author Name Claudia Orellaan N.P. (transmitted by agent of provider Mechelle Price) Address [address] [facility], [place] [address] Care Team Providers Name Role Phone Gucci Rice III, MD - Internal Care Team Information Nutritional Assistant [phone] Medicine Nathalie Barrientos MD - Internal Care Team Information Nutritional Assistant Medicine Problems Active Problems Provider Date Benign hypertension Claudia Orellana N.P. Onset: 08/14/2016 Note: as of 07/10/18 no consequences Anxiety state Gucci Rice M.D. Onset: 12/04/2015 Pure hypercholesterolemia Gucci Rice M.D. Onset: 12/04/2015 Localized, primary osteoarthritis of the aFrideh Amos M.D. Onset: 02/16/2016 pelvic region and thigh Spinal [...] region Juan Daniel Eric MD Onset: 09/15/2018 Social History Type Date Description Comments Sex Unknown ETOH Use Occasionally consumes alcohol Tobacco Use Start: Unknown Patient has never smoked Recreational Drug Use Denies Drug Use Smoking Status Reviewed: 08/30/19 Patient has never smoked Exercise Type/Frequency Exercises sporadically walks on occ; some yoga stretching Allergies, Adverse Reactions, Alerts Active Allergies Reaction Severity Comments Date Bactrim Nausea and Vomiting 10/25/2015 Medications Active Medications SIG Qnty Indications Ordering Date Provider Azithromycin two tabs day one, 6tabs J20.9 Claudia Reyna, 08/30/2019 250mg one daily till N.P. Tablets gone Ipratropium 1 vial in 180ml J20.9 Claudia Reyna, 08/30/2019 Cyrus/Albuterol nebulizer three N.P. Sulfate times a day as needed for asthma 0.5-2.5(3)mg/3ML Solution Prednisone 4 tablets by 40tabs J20.9 Claudia Varn, 08/30/2019 10mg Tablets mouth for 4 N.P. days,3 tablets by mouth for 4 days, 2 tablets by mouth for 4 days, 1 tablet by mouth for 4 days Benzonatate one by mouth 30caps J20.9 Claudia Reyna, 08/30/2019 200mg three times daily N.P. Capsules as needed for cough Fluoxetine HCL 1 by mouth every 90caps F41.9 Claudia Orellana, 04/14/2019 40mg day N.P. Capsules Atorvastatin Calcium take 1 tablet by 90tabs Claudia Orellana, 03/30/2019 mouth at bedtime N.P. 40mg Tablets Ferrous Sulfate 1 by mouth twice 60tabs Claudia Orellana, 12/08/2018 a day N.P. 325(65Fe) mg Tablets Omeprazole one on an empty 30caps Peter T. 06/03/2018 40mg stomach in MD Jeffery Capsules DR sawyre Transderm-Scop (1.5 apply one patch 10units Hector Smith NP 08/18/2017 MG) behind ear every 1mg/3Days Patches 72 hours 72HR Ramipril take 1 capsule by 90caps Claudia Orellana, 12/23/2016 10mg Capsules mouth once daily N.P. Tramadol HCL 1 by mouth every 90tabs M48.06 Claudia Orellana, 03/07/2016 50mg 6 hours as needed N.P. Tablets pain Advil 4 tabs tid Unknown 02/16/2013 200mg Tablets Valacyclovir HCL 1 by mouth daily 30tabs Claudia Orellana, 1gm N.P. Tablets Ativan 1 by mouth twice 60tabs Claudia Orellana, 1mg Tablets a day as needed N.P. anxiety Lotemax as needed Unknown 0.5% Gel Multivitamins 1 by mouth every Unknown Capsules day Calcium + D Unknown Iron (Ferrous once daily Unknown Gluconate) 256(28Fe) mg Tablets History Medications Hydroxyzine HCL 1 tablets by 60tabs F41.9 Claudia Orellana, 04/14/2019 - 25mg mouth every 6-8 N.P. 06/08/2019 Tablets hours as needed for anxiety Amoxicillin 1 three times a 30caps H66.92 Gucci ECorey Mosquedaie, 04/01/2019 - 500mg day for 10 days M.D. 04/13/2019 Capsules Medications Administered in Office Medication SIG Qnty Indications Ordering Provider Date Hyalagan Or Supartz, For Jo Delgado PA-C 03/05/2019 Intra-Articular Inject Per Dose [...] Code Status Date Vaccine Reaction Lot # [id number] Given 08/02/2019 Influenza Virus Vaccine, Quadrivalent ([id number]), Derived From Cell 05020 Given 12/01/2018 Pneumococcal Conjugate pt. tolerated well. [id number] Vaccine 13 Valent For Intramuscular Use 05043 Given 06/16/2018 Influenza Virus Vaccine, Quadrivalent, Split, Preservative Free 81544 Given 11/19/2017 Tdap - No allergies noted - no [id number] Tetanus/Diptheria/Acellular immediate side effects Pertussis seen - patient tolerated well 39602 Given 07/03/2017 Influenza Virus Vaccine, Quadrivalent, Split, Preservative Free 92653 Given 06/24/2016 Influ Virus Vaccine, no reaction noted .. [id number] Quadrivalent, Split Virus, [place] [address] Given 06/22/2013 Zoster (Zostavax) 76644 Given 10/20/2007 Tdap - Tetanus/Diptheria/Acellular Pertussis Vital Signs Date Vital Result Comment 08/30/2019 9:20am Height 64 inches 5'4" Weight 240.12 lb Heart Rate 96 /min BP Systolic Sitting 142 mmHg BP Diastolic Sitting 83 mmHg Body Temperature 97.9 F O2 % BldC Oximetry 96 % BMI (Body Mass Index) 41.2 kg/m2 07/30/2019 9:45am Height 64 inches 5'4" Weight 235.25 lb Heart Rate 94 /min BP Systolic Sitting 166 mmHg Rue large cuff BP Diastolic Sitting 100 mmHg Rue large cuff O2 % BldC Oximetry 96 % On Ra BMI (Body Mass Index) 40.4 kg/m2 Results Test Acquired Date Facility Test Result H/L Range Note Laboratory test 04/11/2019 [facility] Troponin-I 0.00 ng/mL < 0.[address] (TnI) [place], [place] [id number] [phone] Inr/Protime 04/11/2019 [facility] Inr 0.88 Normal 0.82-1.[address] [place] [address] [phone] CBC Auto Diff 04/11/2019 [facility] White 6.1 10^3/uL Normal 3.5-10.[address] [place] [address] Count [phone] Red Blood Count 4.15 10^6/uL Normal 3.70-4.87 Hemoglobin 13.2 g/dL Normal 12.0-16.0 Hematocrit 39 % Normal 35-47 Mean Corpuscular Volume 94 fL Normal 80-97 Mean Corpuscular Hemoglobin 32 pg High 27-31 Mean Corpuscular HGB Conc 34 g/dL Normal 31-36 Red Cell Distribution Width 14 % Normal 10-15 Platelet Count 332 10^3/uL Normal 150-450 Mean Platelet Volume 7.7 fL Normal 7.4-10.4 Abs Neutrophils 2.6 10^3/uL Normal 1.5-7.7 Abs Lymphocytes 2.6 10^3/uL Normal 1.0-4.8 Abs Monocytes 0.6 10^3/uL Normal 0-0.8 Abs Eosinophils 0.3 10^3/uL Normal 0-0.6 Abs Basophils 0.1 10^3/uL Normal 0-0.2 Abs Nucleated RBC 0.0 10^3/uL Granulocyte % 42.0 % Lymphocyte % 42.1 % Monocyte % 9.2 % Eosinophil % 5.7 % Basophil % 1.0 % Nucleated Red Blood Cells % 0.0 Comp Metabolic 04/11/2019 [facility] Sodium 138 mmol/L Normal 135-[address] [place] [address] [phone] Potassium 4.2 mmol/L Normal 3.5-5.0 Chloride 104 mmol/L Normal 101-111 Co2 Carbon Dioxide 26 mmol/L Normal 22-32 Anion Gap 8 mmol/L Normal 2-11 Glucose 98 mg/dL Normal 70-100 Blood Urea Nitrogen 23 mg/dL Normal 6-24 Creatinine 0.82 mg/dL Normal 0.51-0.95 BUN/Creatinine Ratio 28.0 High 8-20 Calcium 9.0 mg/dL Normal 8.6-10.3 Total Protein 7.4 g/dL Normal 6.4-8.9 Albumin 4.2 g/dL Normal 3.2-5.2 Globulin 3.2 g/dL Normal 2-4 Albumin/Globulin Ratio 1.3 Normal 1-3 Total Bilirubin 0.20 mg/dL Normal 0.2-1.0 Alkaline Phosphatase 92 U/L Normal 34-104 Alt 40 U/L Normal 7-52 Ast 38 U/L Normal 13-39 Egfr Non- 70.0 >60 Egfr 84.7 >60 3 Laboratory test 04/11/2019 [facility] Troponin-I (TnI) 0.00 ng/ mL <0.[address] [place] [address] [phone] Lipid Profile 03/30/2019 [facility] Triglycerides 162 mg/dL 5 (Trig/Chol/HDL) [address] [place] [address] [phone] Cholesterol 229 mg/dL 6 HDL Cholesterol 91.4 mg/dL 7 LDL Cholesterol 105 mg/dL 8 Liver Function 03/30/2019 [facility] Total Protein 6.2 g/dL Low 6.4-8.9 Panel [address] [place] [address] [phone] Albumin 3.8 g/dL Normal 3.2-5.2 Globulin 2.4 g/dL Normal 2-4 Albumin/Globulin Ratio 1.6 Normal 1-3 Total Bilirubin 0.30 mg/dL Normal 0.2-1.0 Direct Bilirubin 0.10 mg/dL Normal 0.03-0.18 Indirect Bilirubin 0.2 mg/dL Low 0.3-1.0 Alkaline Phosphatase 85 U/L Normal 34-104 Alt 33 U/L Normal 7-52 Ast 35 U/L Normal 13-39 1 Troponin-I testing on Plasma Separator Tubes (PST) has a known false positive rate of 0.20-0.40%. All positive troponins reflex immediately to secondary confirmatory testing. Using the [employer] DxI 800 Access Immunoassay systems, the 99th percentile upper reference limit was demonstrated to be < 0.03 ng/mL. 2 Standard intensity warfarin therapeutic range: 2.0-3.0 High intensity warfarin therapeutic range: 2.5-3.5 3 Because ethnic data is not always readily [...] 15-29 5 Kidney failure <15 (or dialysis) 4 Troponin-I testing on Plasma Separator Tubes (PST) has a known false positive rate of 0.20-0.40%. All positive troponins reflex immediately to secondary confirmatory testing. Using the RET[employer] PRO DxI [employer] Access Immunoassay systems, the 99th percentile upper reference limit was demonstrated to be < 0.03 ng/mL. 5 Desirable: <150 Borderline High: 150-199 High: 200-499 Very High: >500 6 Desirable: <200 Borderline High: 200-239 High: >239 7 Low: <40 Desirable: 40-60 High: >60 8 Desirable: <100 Near Optimal: 100-129 Borderline High: 130-159 High: 160-189 Very High: >189 Procedures Date Code Description Status 06/24/2019 82012 Sleep Study Unattended,HRT Rate,Oxygen Sat,Resp Completed Effort/Airflow 03/05/2019 89426 Inj/Aspir Major JT Or Bursa W/ US Completed 03/05/2019 06691 Inject/Drain Joint/Bursa Major W/O US Completed 12/11/2018 [id number] Mammogram Completed 11/26/2017 [id number] Bone Mineral Density Test Completed 11/26/2017 [id number] Mammogram Completed 08/22/2016 [id number] Mammogram Completed 12/07/2014 [id number] Colonoscopy Completed Medical Devices Description No Information Available Encounters Type Date Location Provider Dx Diagnosis Office Visit 07/30/2019 [facility] G47.33 Obstructive sleep 10:00a [facility] apnea (adult) [facility] [employer] [facility] (pediatric) G47.00 Insomnia, unspecified R53.83 Other fatigue E66.9 Obesity, unspecified Z68.41 Body mass index (BMI) 40.0-44.9, adult Office Visit 07/06/2019 Jaron Frances M19.012 Primary 2:30p [facility] osteoarthritis, left [place] shoulder M75.42 Impingement syndrome of left shoulder Office Visit 06/18/2019 10:00a [facility] Gabby Yoan, R06.83 [facility] G47.00 Insomnia, unspecified Office Visit 06/17/2019 9:45a [facility] Juan Daniel Eric M75.42 Impingement at [place] syndrome of left shoulder M19.012 Primary osteoarthritis, left shoulder Office Visit 06/08/2019 10:40a [facility] Internal Claudia Orellana, I10 Essential ( primary[facility] F41.1 Generalized anxiety disorder Office Visit 05/11/2019 [place] Eric, M19.012 Primary 1:15p [facility] [place] osteoarthritis, left [place] shoulder Office Visit 04/14/2019 [facility] Internal Claudia F41.9 Anxiety disorder, 3:20p Medicine - [facility] Varn, N.P. unspecified F33.9 Major depressive disorder, recurrent, unspecified R53.83 Other fatigue Office Visit 04/01/2019 10:00a [facility] Internal Gucci Ivey H66.92 Otitis media, Inna Rice M.D. unspecified, [facility] J06.9 Acute upper respiratory infection, unspecified F41.9 Anxiety disorder, unspecified Assessments Date Code Description Provider 08/30/2019 J20.9 Acute bronchitis, unspecified Claudia Varn, N.P. 07/30/2019 G47.33 Obstructive sleep apnea (adult) Marycruz Royal NP (pediatric) 07/30/2019 G47.00 Insomnia, unspecified Marycruz Royal NP 07/30/2019 R53.83 Other fatigue Marycruz Royal NP 07/30/2019 E66.9 Obesity, unspecified Marycruz Royal NP 07/30/2019 Z68.41 Body mass index (BMI) 40.0-44.9, adult Marycruz Royal NP 07/06/2019 M19.012 Primary osteoarthritis, left shoulder Juan Daniel Eric MD 07/06/2019 M75.42 Impingement syndrome of left shoulder Juan Daniel Eric MD 06/24/2019 G47.33 Obstructive sleep apnea (adult) Gabby Milton MD (pediatric) 06/18/2019 R06.83 Snoring Gabby Milton MD 06/18/2019 G47.00 Insomnia, unspecified Gabby Milton MD 06/17/2019 M75.42 Impingement syndrome of left shoulder Juan Daniel Eric MD 06/17/2019 M19.012 Primary osteoarthritis, left shoulder Juan Daniel Eric MD 06/08/2019 I10 Essential (primary) hypertension Claudia Orellana, N.P. 06/08/2019 F41.1 Generalized anxiety disorder Claudia Orellana N.P. 05/11/2019 M19.012 Primary osteoarthritis, left shoulder Juan Daniel Eric MD 04/14/2019 F41.9 Anxiety disorder, unspecified Claudia Orellana, N.P. 04/14/2019 F33.9 Major depressive disorder, recurrent, Claudia Orellana N.P. unspecified 04/14/2019 R53.83 Other fatigue Claudia Orellana N.P. 04/01/2019 H66.92 Otitis media, unspecified, left ear Gucci Rice M.D. 04/01/2019 J06.9 Acute upper respiratory infection, Gucci Rice M.D. unspecified 04/01/2019 F41.9 Anxiety disorder, unspecified Gucci Rice M.D. 03/05/2019 M19.012 Primary osteoarthritis, left shoulder Jo FLORA Delgado 03/05/2019 M75.42 Impingement syndrome of left shoulder Jo FLORA Delgado Plan of Treatment Future Appointment(s):09/24/2019 10:30 am - Marycruz Royal NP at [facility]12/07/2019 1:00 pm - Claudia Orellana, N.PCorey at [facility] Internal Medicine - [facility]08/30/2019 - Claudia Orellana N.PCoreyJ20.9 Acute bronchitis, unspecifiedNew Medication:Azithromycin 250 mg - two tabs day one, one daily till goneIpratropium Cyrus/Albuterol Sulfate 0.5-2.5(3) mg/3ML - 1 vial in nebulizer three times a day as needed for asthmaPrednisone 10 mg - 4 tablets by mouth for 4 days,3 tablets by mouth for 4 days, 2 tablets by mouth for 4 days, 1 tablet by mouth for 4 daysBenzonatate 200 mg - one by mouth three times daily as needed for coughComments:For your bronchitis: I have sent a prescription to the pharmacy for Azithromycin. Take 2 tablets thefirst day then 1 tablet daily until they are gone for a total of 5 days. The medicine stays in your system for an additional 5 days. I sent in a prescription to the pharmacy for Prednisone 10 mg. Take 4 tablets for 4 days, 3 tablets for 4 days, 2 tablets for 4 days, and then 1 tablet for 4 days. I sent in some ampules for you to use with the nebulizer, you can use this 3 times daily. I sent in a prescription for Benzonatate 200 mg.. You may take 1 tablet 3 times daily as you need it for your cough.If your symptoms do not improve or if you should start to feel worse call the office. Functional Status Description No Information Available Mental Status Description No Information Available Referrals Refer to Reason for Referral Status Appt Date Suly Perez, [employer]EL[employer]IST[employer] Patient with anxiety and depression. She had Sent 2018 been on Escitalopram but gained weight. I have transition her to Fluoxetine. For her anxiety I have prescribed Hydroxyzine. She also is consuming too much alcohol, approximately 1 bottle per night. She is referred for counseling. [address], [address] [place] [address] [phone] [facility] Patient has daytime somnolence, wakes in the night Sent 07/2019 gasping for air with a dry mouth. referred for possible sleep apnea and possible sleep study. [address] [place] [address] [phone]
--- OUTSIDE RECORDS SUMMARY | 2019-09-01 06:47 | XMS REPORT | Continuity of Care Document ---
:1955 External Reference #:[id number] Author Name Juan Daniel Eric MD (transmitted by agent of provider Dayana Cervantes) Address [address] [facility] [place] [address] Care Team Providers Name Role Phone Gucci Rice III, MD - Internal Care Team Information Head Waiter Medicine Nathalie Barrientos MD - Internal Care Team Information Head Waiter [phone] Medicine Problems Active Problems Provider Date Benign hypertension Claudia Orellana, N.P. Onset: 08/14/2016 Note: as of 07/10/18 no consequences Anxiety state Gucci Rice M.D. Onset: 12/04/2015 Pure hypercholesterolemia Gucci Rice M.D. Onset: 12/04/2015 Localized, primary osteoarthritis of the Farideh Amos M.D. Onset: 02/16/2016 pelvic region and [...] Use Denies Drug Use Smoking Status Reviewed: 07/06/19 Patient has never smoked Exercise Type/Frequency Exercises sporadically walks on occ; some yoga stretching Allergies, Adverse Reactions, Alerts Active Allergies Reaction Severity Comments Date Bactrim Nausea and Vomiting 10/25/2015 Medications Active Medications SIG Qnty Indications Ordering Date Provider Fluoxetine HCL 1 by mouth every 90caps F41.9 Claudia Orellana, 04/14/2019 40mg day N.P. Capsules Atorvastatin Calcium take 1 tablet by 90tabs Claudia Orellana, 03/30/2019 40mg mouth at bedtime N.P. Tablets Ferrous Sulfate 1 by mouth twice 60tabs Claudia Orellana, 12/08/2018 325(65Fe) a day N.P. mg Tablets Omeprazole one on an empty 30caps Peter TCorey 06/03/2018 40mg Capsules stomach in MD DR silverio Gil Transderm-Scop (1.5 apply one patch 10units Hector [...] 1 three times a 30caps H66.92 Gucci Rice, 04/01/2019 - 500mg day for 10 days [...] Code Status Date Vaccine Reaction Lot # [id number] Given 12/01/2018 Pneumococcal Conjugate pt. tolerated well. [id number] Vaccine 13 Valent For Intramuscular Use 36325 Given 06/16/2018 Influenza Virus Vaccine, Quadrivalent, Split, Preservative Free 26205 Given 11/19/2017 Tdap - No allergies noted - no [id number] Tetanus/Diptheria/Acellular immediate side effects Pertussis seen - patient tolerated well 04386 Given 07/03/2017 Influenza Virus Vaccine, Quadrivalent, Split, Preservative Free 62485 Given 06/24/2016 Influ Virus Vaccine, no reaction noted .. [id number] Quadrivalent, Split Virus, [place] [address] Given 06/22/2013 Zoster (Zostavax) 09044 Given 10/20/2007 Tdap - Tetanus/Diptheria/Acellular Pertussis Vital Signs Date Vital Result Comment 07/06/2019 2:25pm Height 64 inches 5'4" Weight 230.00 lb Heart Rate 94 /min BP Systolic 140 mmHg BP Diastolic 92 mmHg Respiratory Rate 16 /min Body Temperature 98.8 F Pain Level 4 O2 % BldC Oximetry 96 % BMI (Body Mass Index) 39.5 kg/m2 06/18/2019 9:44am Height 64 inches 5'4" Weight 225.00 lb Heart Rate 80 /min BP Systolic Sitting 140 mmHg Rue large cuff BP Diastolic Sitting 90 mmHg Rue large cuff Respiratory Rate 16 /min O2 % BldC Oximetry 96 % BMI (Body Mass Index) 38.6 kg/m2 Neck Circumference in inches 15 Results Test Date Facility Test Result H/L Range Note Laboratory test 04/11/2019 [facility] Troponin-I 0.00 ng/mL < 0.[address] (TnI) [place] [address] [phone] Inr/Protime 04/11/2019 [facility] Inr 0.88 Normal 0.82-1.[address] [place] [address] [phone] CBC Auto Diff 04/11/2019 [facility] White Blood 6.1 10^3/uL Normal 3.5-10.[address] [place] [address] [phone] Red Blood Count 4.15 10^6/uL Normal 3.70-4.87 [...] Blood Cells % 0.0 Comp Metabolic 04/11/2019 [facility] Sodium 138 mmol/L Normal 135-145 Panel [address] [place] [address] [phone] Potassium 4.2 mmol/L Normal 3.5-5.0 Chloride 104 [...] Egfr 84.7 >60 3 Laboratory test 04/11/2019 [facility] Troponin-I (TnI) 0.00 ng/ mL <0.04 4 finding [address] [place] [address] [phone] Lipid Profile 03/30/2019 [facility] Triglycerides 162 mg/dL 5 (Trig/Chol/HDL) [address] [place] [address] [phone] Cholesterol 229 mg/dL 6 HDL Cholesterol 91.4 mg/dL 7 LDL Cholesterol 105 mg/dL 8 Liver Function 03/30/2019 [facility] Total Protein 6.2 g/dL Low 6.4-8.9 Panel [address] [place] [address] [phone] Albumin 3.8 g/dL Normal 3.2-5.2 Globulin 2.4 [...] immediately to secondary confirmatory testing. Using the [employer] DxI 800 Access Immunoassay systems, the 99th [...] immediately to secondary confirmatory testing. Using the [employer] DxI 800 Access Immunoassay systems, the 99th percentile upper reference limit was demonstrated to be < 0.03 ng/mL. 5 Desirable: <150 Borderline High: 150-199 High: 200-499 Very High: >500 6 Desirable: <200 Borderline High: 200-239 High: >239 7 Low: <40 Desirable: 40-60 High: >60 8 Desirable: <100 Near Optimal: 100-129 Borderline High: 130-159 High: 160-189 Very High: >189 Procedures Date Code Description Status 03/05/2019 Inj/Aspir Major JT Or Bursa W/ US Completed 03/05/2019 Inject/Drain Joint/Bursa Major W/O US Completed 02/26/2019 Inj/Aspir Major JT Or Bursa W/ US Completed 02/19/2019 Inj/Aspir Major JT Or Bursa W/ US Completed 02/12/2019 Inj/Aspir Major JT Or Bursa W/ US Completed 02/05/2019 Inj/Aspir Major JT Or Bursa W/ US Completed 12/11/2018 [id number] Mammogram Completed 11/26/2017 [id number] Bone Mineral Density Test Completed 11/26/2017 [id number] Mammogram Completed 08/22/2016 [id number] Mammogram Completed 12/07/2014 [id number] Colonoscopy Completed Medical Devices Description No Information Available Encounters Type Date Location Provider Dx Diagnosis Office Visit 06/18/2019 [facility] Gabby Milton MD R06.83 Snoring 10:00a [facility] G47.00 Insomnia, unspecified Office Visit 06/17/2019 9:45a [facility] Juan Daniel Eric M75.42 Impingement at [place] syndrome of left shoulder M19.012 Primary osteoarthritis, left shoulder Office Visit 06/08/2019 10:40a [facility] Verito Orellana, I10 Essential ( primary) Medicine - Ccmob N.P. hypertension F41.1 Generalized anxiety disorder Office Visit 05/11/2019 Jaron Eric, M19.012 Primary 1:15p Orthopedics at osteoarthritis, left [place] shoulder Office Visit 04/14/2019 [facility] Internal Claudia F41.9 Anxiety disorder, 3:20p Medicine - Ccmob Varn, N.P. unspecified F33.9 Major depressive disorder, recurrent, unspecified R53.83 Other fatigue Assessments Date Code Description Provider 06/18/2019 R06.83 Snoring Gabby Milton MD 06/18/2019 G47.00 Insomnia, unspecified Gabby Milton MD 06/17/2019 M75.42 Impingement syndrome of left shoulder Juan Daniel Eric MD 06/17/2019 M19.012 Primary osteoarthritis, left shoulder Juan Daniel Eric MD 06/08/2019 I10 Essential (primary) hypertension Claudia Orellana, N.P. 06/08/2019 F41.1 Generalized anxiety disorder Claudia Orellana, N.P. 05/11/2019 M19.012 Primary osteoarthritis, left shoulder Juan Daniel Eric MD 04/14/2019 F41.9 Anxiety disorder, unspecified Claudia Orellana, N.P. 04/14/2019 F33.9 Major depressive disorder, recurrent, Claudia Orellana, N.P. unspecified 04/14/2019 R53.83 Other fatigue Claudia Orellana N.P. 04/01/2019 H66.92 Otitis media, unspecified, left ear Gucci Rice M.D. 04/01/2019 J06.9 Acute upper respiratory infection, Gucci Rice M.D. unspecified 04/01/2019 F41.9 Anxiety disorder, unspecified Gucci Rice M.D. 03/05/2019 M19.012 Primary osteoarthritis, left shoulder Joitz Delgado PA-C 03/05/2019 M75.42 Impingement syndrome of left shoulder Jo FLORA Delgado 02/26/2019 M19.012 Primary osteoarthritis, left shoulder Juan Daniel Eric MD 02/19/2019 M19.012 Primary osteoarthritis, left shoulder Juan Daniel Eric MD 02/12/2019 M19.012 Primary osteoarthritis, left shoulder Juan Daniel Eric MD 02/05/2019 M19.012 Primary osteoarthritis, left shoulder Juan Daniel Eric MD Plan of Treatment Future Appointment(s):07/30/2019 10:00 am - Marycruz Royal NP at [facility]08/11/2019 2:15 pm - MARIA T ManW at [facility] Internal Medicine [facility]07/21/2019 9:45 am - Suly Perez LCSW at [facility]:00 pm - Claudia Orellana, N.P. at [facility] Internal Medicine [facility] Functional Status Description No Information Available Mental Status Description No Information Available Referrals Refer to Reason for Referral Status Appt Date Suly Perez, JAWBONE BREAKER Patient with anxiety and depression. She had Sent 2018 been on Escitalopram but gained weight. I have transition her to Fluoxetine. For her anxiety I have prescribed Hydroxyzine. She also is consuming too much alcohol, approximately 1 bottle per night. She is referred for counseling. [address] [facility] [place] [address] [phone] [facility] Patient has daytime somnolence, wakes in the night Sent 07/2019 gasping for air with a dry mouth. referred for possible sleep apnea and possible sleep study. [address] [place] [address] [phone]
--- OUTSIDE RECORDS SUMMARY | 2019-09-01 06:47 | XMS REPORT | Continuity of Care Document ---
:1955 External Reference #:[id number] Author Name Marycruz Royal NP (transmitted by agent of provider Nakia Casillas) Address [address], [address] [place] [address] Care Team Providers Name Role Phone Gucci Rice III, MD - Internal Care Team Information Contract Design Agent Medicine Nathalie Barrientos MD - Internal Care Team Information Contract Design Agent Medicine Problems Active Problems Provider Date Benign hypertension Claudia Orellana, N.P. Onset: 08/14/2016 Note: as of 07/10/18 no consequences Anxiety state Gucci Rcie M.D. Onset: 12/04/2015 Pure hypercholesterolemia Gucci Rice [...] Use Denies Drug Use Smoking Status Reviewed: 07/30/19 Patient has never smoked Exercise Type/Frequency Exercises [...] Transderm-Scop (1.5 apply one patch 10units Hector Smiht NP 08/18/2017 MG) behind ear every 1mg/3Days [...] (Kenalog) Juan Daniel Eric MD 09/15/2018 Injection Triamcinnoah (Kenalog) Juan Daniel Eric MD 05/05/2018 Injection Triamcinolone (Kenalog) Jo Delgado PA-C 02/19/2018 Injection Depomedrol 40MG Farideh Amos M.D. 07/08/2016 Injection Depomedrol 40MG Farideh Amos M.D. 07/08/2016 Injection Depomedrol 40MG Farideh Amos M.D. 02/16/2016 Injection Influenza Virus Vaccine Unknown 06/10/2015 Injection Immunizations CPT Code Status Date Vaccine Reaction Lot # [id number] Given 12/01/2018 Pneumococcal Conjugate pt. tolerated well. [id number] Vaccine 13 Valent For Intramuscular Use 97748 Given 06/16/2018 Influenza Virus Vaccine, Quadrivalent, Split, Preservative Free 26883 Given 11/19/2017 Tdap - No allergies noted - no [id number] Tetanus/Diptheria/Acellular immediate side effects Pertussis seen - patient tolerated well 58985 Given 07/03/2017 Influenza Virus Vaccine, Quadrivalent, Split, Preservative Free 92975 Given 06/24/2016 Influ Virus Vaccine, no reaction noted .. [id number] Quadrivalent, Split Virus, [place] [address] Given 06/22/2013 Zoster (Zostavax) 45491 Given 10/20/2007 Tdap - Tetanus/Diptheria/Acellular Pertussis Vital Signs Date Vital Result Comment 07/30/2019 9:45am Height 64 inches 5'4" Weight 235.25 lb Heart Rate 94 /min BP Systolic Sitting 166 mmHg Rue large cuff BP Diastolic Sitting 100 mmHg Rue large cuff O2 % BldC Oximetry 96 % On Ra BMI (Body Mass Index) 40.4 kg/m2 07/06/2019 2:25pm Height 64 inches 5'4" Weight 230.00 lb Heart Rate 94 /min BP Systolic 140 mmHg BP Diastolic 92 mmHg Respiratory Rate 16 /min Body Temperature 98.8 F Pain Level 4 O2 % BldC Oximetry 96 % BMI (Body Mass Index) 39.5 kg/m2 Results Test Acquired Date Facility Test Result H/L Range Note Laboratory test 04/11/2019 [facility] Troponin-I 0.00 ng/mL < 0.[address] (TnI) [place] [address] [phone] Inr/Protime 04/11/2019 [facility] Inr 0.88 Normal 0.82-1.[address] [place] [address] [phone] CBC Auto Diff 04/11/2019 [facility] White 6.1 10^3/uL Normal 3.5-10.8 [address] [place] [address] Count [phone] Red Blood Count 4.15 10^6/uL Normal 3.70-4.87 [...] Blood Cells % 0.0 Comp Metabolic 04/11/2019 [facility] Sodium 138 mmol/L Normal 135-145 Panel [address] [place] [address] [phone] Potassium 4.2 mmol/L Normal 3.5-5.0 Chloride 104 [...] Egfr 84.7 >60 3 Laboratory test 04/11/2019 [facility] Troponin-I (TnI) 0.00 ng/ mL <0.04 4 finding [address] [place] [address] [phone] Lipid Profile 03/30/2019 [facility] Triglycerides 162 mg/dL 5 (Trig/Chol/HDL) [address] [place] [address] [phone] Cholesterol 229 mg/dL 6 HDL Cholesterol 91.4 mg/dL 7 LDL Cholesterol 105 mg/dL 8 Liver Function 03/30/2019 [facility] Total Protein 6.2 g/dL Low 6.4-8.9 Panel [address] [place] [address] [phone] Albumin 3.8 g/dL Normal 3.2-5.2 Globulin 2.4 [...] immediately to secondary confirmatory testing. Using the [employer] DxI 800 Access Immunoassay systems, the 99th [...] immediately to secondary confirmatory testing. Using the [employer] DxI 800 Access Immunoassay systems, the 99th [...] >189 Procedures Date Code Description Status 06/24/2019 31180 Sleep Study Unattended,HRT Rate,Oxygen Sat,Resp Completed Effort/Airflow 03/05/2019 Inj/Aspir Major JT Or Bursa W/ US Completed 03/05/2019 Inject/Drain Joint/Bursa Major W/O US Completed 02/26/2019 Inj/Aspir Major JT Or Bursa W/ US Completed 02/19/2019 Inj/Aspir Major JT Or Bursa W/ US Completed 02/12/2019 Inj/Aspir Major JT Or Bursa W/ US Completed 02/05/2019 Inj/Aspir Major JT Or Bursa W/ US Completed 12/11/2018 [id number] Mammogram Completed 11/26/2017 [id number] Bone Mineral Density Test Completed 11/26/2017 [id number] Mammogram Completed 08/22/2016 [id number] Mammogram Completed 12/07/2014 [id number] Colonoscopy Completed Medical Devices Description No Information Available Encounters Type Date Location Provider Dx Diagnosis Office Visit 07/06/2019 [facility] Juan Daniel Eric MD M19.012 Primary 2:30p at [place] osteoarthritis, left shoulder M75.42 Impingement syndrome of left shoulder Office Visit 06/18/2019 10:00a [facility] Gabby Milton, R06.83 [facility] G47.00 Insomnia, unspecified Office Visit 06/17/2019 9:45a [facility] Juan Daniel Eric M75.42 Impingement at [place] syndrome of left shoulder M19.012 Primary osteoarthritis, left shoulder Office Visit 06/08/2019 10:40a [facility] Orellana, I10 Essential ( primary) Medicine - Ccmob N.P. hypertension F41.1 Generalized anxiety disorder Office Visit 05/11/2019 Jaron Eric M19.012 Primary 1:15p Orthopedics at osteoarthritis, left [place] shoulder Office Visit 04/14/2019 [facility] F41.9 Anxiety disorder, 3:20p Medicine - Ccmob Varn, N.P. unspecified F33.9 Major depressive disorder, recurrent, unspecified R53.83 Other fatigue Office Visit 04/01/2019 10:00a [facility] Gucci Ivey H66.92 Otitis media, Inna Rice M.D. unspecified, left Ccmob ear J06.9 Acute upper respiratory infection, unspecified F41.9 Anxiety disorder, unspecified Assessments Date Code Description Provider 07/30/2019 G47.33 Obstructive sleep apnea (adult) Marycruz Royal NP (pediatric) 07/30/2019 G47.00 Insomnia, unspecified Marycruz Royal NP 07/30/2019 R53.83 Other fatigue Marycruz Royal NP 07/30/2019 E66.9 Obesity, unspecified Marycruz Royal NP 07/06/2019 M19.012 Primary osteoarthritis, [...] MD 04/14/2019 F41.9 Anxiety disorder, unspecified Claudia Maria Guadalupen, N.P. 04/14/2019 F33.9 Major depressive disorder, recurrent, Claudia Orellana, N.P. unspecified 04/14/2019 R53.83 Other fatigue Claudia Orellana, N.P. 04/01/2019 H66.92 Otitis media, unspecified, left ear Gucci Rice M.D. 04/01/2019 J06.9 Acute upper respiratory infection, Gucci Rice M.D. unspecified 04/01/2019 F41.9 Anxiety disorder, unspecified Gucci Rice M.D. 03/05/2019 M19.012 Primary osteoarthritis, left shoulder Jo Maria LuzpamleaFLORA eid 03/05/2019 M75.42 Impingement syndrome of left shoulder Jo Sandy, FLORA 02/26/2019 M19.012 Primary osteoarthritis, left shoulder Juan Daniel Eric MD 02/19/2019 M19.012 Primary osteoarthritis, left shoulder Juan Daniel Eric MD 02/12/2019 M19.012 Primary osteoarthritis, left shoulder Juan Daniel Eric MD 02/05/2019 M19.012 Primary osteoarthritis, left shoulder Juan Daniel Eric MD Plan of Treatment Future Appointment(s):09/24/2019 10:30 am - Marycruz Royal NP at [facility]08/11/2019 2:15 pm - Suly Perez LCSW at [facility] Internal Medicine [facility]12/07/2019 1:00 pm - Claudia Orellana N.P. at [facility] Internal Medicine [facility] Functional Status Description No Information Available Mental Status Description No Information Available Referrals Refer to Reason for Referral Status Appt Date Suly Perez LCSW Patient with anxiety and depression. She had Sent 2018 been on Escitalopram but gained weight. I have transition her to Fluoxetine. For her anxiety I have prescribed Hydroxyzine. She also is consuming too much alcohol, approximately 1 bottle per night. She is referred for counseling. [address], [address] [place] [address] [phone] [facility] Patient has daytime somnolence, wakes in the night Sent 07/2019 gasping for air with a dry mouth. referred for possible sleep apnea and possible sleep study. [address] [address] [phone]
[2019-09-01] MEDS ORDERED: HYDROcodone/ACETAMIN 5-325 MG* 1 TAB PO ONE (07:42)
[2019-09-01] MEDS ORDERED: Albuterol/Ipratropium NEB.SOL* Albuterol 2.5 MG/Ipratropium 0.5 MG 3 ML INH ONE (07:42)
--- NOTE | 2019-09-01 07:47 | ED ---
Respiratory - HPI Summary HPI Summary: This patient is a 64 year old F presenting to [facility] with a chief complaint of severe back pain with coughing since night of 08/31/19. Every time pt coughs her back is in pain, and it feels like someone is stabbing her. Her back does not hurt to touch, and it is not in pain with movement. Per triage, the patient rates the pain 9/10 in severity. Patient saw doctor on 08/30/19 and the doctor thinks she has bronchitis. She was prescribed a z-pack, Prednisone, Nebulizer, and Cough suppressant. She last had a nebulizer 0400, cough suppressant at 2000 at 08/31/19, and tramadol at 0430. Pt had a Cpap week and a half ago. - History of Current Complaint Chief Complaint: EDUpperRespComplaint Stated Complaint: COUGH PER PT Time Seen by Provider: 09/01/19 07:22 Hx Obtained From: Patient Onset/Duration: Sudden Onset, Lasting Hours, Still Present Timing: Intermittent Episodes Lasting: Initial Severity: Severe Current Severity: Severe Pain Intensity: 9 Character: Cough (Productive) Sputum Amount: Swallowed by Patient Aggravating Factor(s): URI, Other - Cough Alleviating Factor(s): Nothing Associated Signs and Symptoms: URI - Allergy/Home Medications Allergies/Adverse Reactions: Allergies Allergy/AdvReac Type Severity Reaction Status Date / Time sulfamethoxazole Allergy Rash Verified 09/01/19 06:41 [From Bactrim] trimethoprim [From Bactrim] Allergy Rash Verified 09/01/19 06:41 codeine AdvReac Severe Stomach Verified 09/01/19 06:41 Pain PMH/Surg Hx/FS Hx/Imm Hx Endocrine/Hematology History: Denies: Hx Diabetes Cardiovascular History: Reports: Hx Hypercholesterolemia, Hx Hypertension - ON MEDICATION FOR Denies: Hx Pacemaker/ICD Respiratory History: Reports: Hx Asthma - HX OF IN THE PAST- GI History: Reports: Hx Hiatal Hernia - REPAIRED WITH HIATAL HERNIA, Other GI Disorders - OCCASIONAL CONSTIPATION/OCCASIONAL GI UPSET History: Denies: Hx Renal Disease Musculoskeletal History: Reports: Hx Arthritis - BACK, Hx Back Problems, Hx Bursitis - HIPS, Hx Tendonitis - ELBOWS, Other Musculoskeletal History - STENOSIS Denies: Hx Osteoporosis Sensory History: Reports: Hx Contacts or Glasses Denies: Hx Hearing Aid Opthamlomology History: Reports: Hx Contacts or Glasses Neurological History: Reports: Other Neuro Impairments/Disorders - PAIN CLINIC PATIENT Psychiatric History: Reports: Hx Anxiety, Hx Depression, Hx Panic Disorder - ANXIETY, Other Psychiatric Issues/Disorders - Patient states she is an alcoholic - Cancer History Hx Chemotherapy: No Hx Radiation Therapy: No - Surgical History Surgery Procedure, Year, and Place: Tubal ligation 1981. Cholecystectomy 2004. Hysterectomy 2002. Gastric bypass w/ [facility] [facility] 2009. Rt knee arthroscopy 2009. Eye surgery 2010-LIFTED LIDS. 07/2016 LUMBAR - STENOSIS - NO HARDWARE Hx Anesthesia Reactions: No Infectious Disease History: No Infectious Disease History: Denies: Traveled Outside the [place] in Last 30 Days - Family History Known Family History: Positive: Hypertension, Diabetes - Social History Lives: With Family Alcohol Use: Weekly Alcohol Amount: 10 Substance Use Type: Reports: None Smoking Status (MU): Never Smoked Tobacco Review of Systems Positive: Cough Positive: Other - back pain All Other Systems Reviewed And Are Negative: Yes Physical Exam - Summary Physical Exam Summary: Appearance: The patient is well-nourished in no acute distress and in no acute pain. Skin: The skin is warm and dry, and skin color reflects adequate perfusion. HEENT: The head is normocephalic and atraumatic. The pupils are equal and reactive. The conjunctivae are clear and without drainage. Nares are patent and without drainage. Mouth reveals moist mucous membranes, and the throat is without erythema and exudate. The external ears are intact. The ear canals are patent and without drainage. The tympanic membranes are intact. Neck: The neck is supple with full range of motion and non-tender. There are no carotid bruits. There is no neck vein distension. Respiratory: Chest is non-tender. Expiratory wheezes, and crackles on the right side. Cardiovascular: Heart is regular rate and rhythm. There is no murmur or rub auscultated. There is no peripheral edema and pulses are symmetrical and equal. Abdomen: The abdomen is soft and non-tender. There are normal bowel sounds heard in all four quadrants and there is no organomegaly palpated. Musculoskeletal: There is no back tenderness noted. Extremities are non-tender with full range of motion. There is good capillary refill. There is no peripheral edema or calf tenderness elicited. Neurological: Patient is alert and oriented to person, place and time. The patient has symmetrical motor strength in all four extremities. Cranial nerves are grossly intact. Deep tendon reflexes are symmetrical and equal in all four extremities. Psychiatric: The patient has an appropriate affect and does not exhibit any anxiety or depression. Triage Information Reviewed: Yes Vital Signs On Initial Exam: Initial Vitals Temp Pulse Resp BP Pulse Ox 98.8 F 101 16 169/89 97 09/01/19 06:39 09/01/19 06:39 09/01/19 06:39 09/01/19 06:39 09/01/19 06:39 Vital Signs Reviewed: Yes Procedures - Sedation Patient Received Moderate/Deep Sedation with Procedure: No Diagnostics - Vital Signs Vital Signs Temp Pulse Resp BP Pulse Ox 09/01/19 06:39 98.8 F 101 16 169/89 97 - Laboratory Lab Statement: Any lab studies that have been ordered have been reviewed, and results considered in the medical decision making process. - Radiology CXR Radiology Interpretation Completed By: Radiologist Summary of Radiographic Findings: CXR reveals, per radiologist IMPRESSION: CHEST X-RAY FINDINGS ARE CONSISTENT WITH INFILTRATE/PNEUMONIA AT THE POSTERIOR RIGHT LOWER LOBE. ED physician has reviewed this radiology report. Re-Evaluation - Re-Evaluation First Eval Re-Evaluation Time: 09:40 Comment: Discussed results and plan of care with pt. Disposition - Course Course Of Treatment: Ms. Laboy was found on chest x-ray to have a likely pneumonia. She is currently taking Zithromax. Her main problem today is that she has severe pain in her back when she is coughing. She got some significant relief from guaifenesin with codeine here and I will treat her symptomatically with that.Her CURB65 score is 1 for her age. Labs were not obtained here. - Diagnoses Provider Diagnoses: Acute pneumonia Discharge ED - Sign-Out/Discharge Documenting (check all that apply): Patient Departure - Discharge - Discharge Plan Condition: Stable Disposition: HOME Prescriptions: HYDROcodone/ACETAMIN 5-325 MG* [[place] 5-325 TAB*] 1 tab PO Q6H PRN #20 tab MDD 4 PRN Reason: Pain Patient Education Materials: Pneumonia (ED) Referrals: Nathalie Barrientos MD [Primary Care Provider] - 3 Days Additional Instructions: Follow up with primary care provider within 2-3 days. Return to ED for any new or worsening symptoms. - Billing Disposition and Condition Condition: STABLE Disposition: Home - Attestation Statements Document Initiated by Scribe: Yes Documenting Scribe: Christina Penaloza Provider For Whom Scribe is Documenting (Include Credential): Israel Ramirez MD Scribe Attestation: Christina Dockery, scribed for Israel Ramirez MD on 09/01/19 at 1506. Scribe Documentation Reviewed: Yes Provider Attestation: The documentation as recorded by the [email or web address] accurately reflects the service I personally performed and the decisions made by Israel laguerre MD Status of Scribe Document: Viewed
[2019-09-01 10:12] VITALS: BP 145/88
== END 2019-09-01 10:25 | disposition home or self-care (01) ==
LOC: ED 06:38
DX: J18.9 Pneumonia, unspecified organism (principal); E78.00 Pure hypercholesterolemia, unspecified; I10 Essential (primary) hypertension; F41.9 Anxiety disorder, unspecified; F32.9 Major depressive disorder, single episode, unspecified; Z90.49 Acquired absence of other specified parts of digestive tract; Z90.710 Acquired absence of both cervix and uterus; Z98.84 Bariatric surgery status; Z79.899 Other long term (current) drug therapy; Z88.1 Allergy status to other antibiotic agents; Z88.2 Allergy status to sulfonamides; Z88.5 Allergy status to narcotic agent
CPT/HCPCS: 71046; 99283; A9270-GY

== ENCOUNTER 2020-08-17 09:51 | Observation (INO) ==
[~2020-08-17 09:51] MED LIST: Buffered Lidocaine 1% SYRIN 1 ml INTRADERM ONE; Lactated Ringers 1000 ml BAG 1,000 ML IV SCH; Midazolam 2 mg/2 ml VIAL 1 mg/ml 2 ml VIAL (2 mg) ONE; fentaNYL 100 mcg/2 ml 50 MCG/ML VIAL ONE
[2020-08-17] MEDS ORDERED: ceFAZolin 2 GM PREMIX 0 GM/0 ML BAG ONE (10:05)
[2020-08-17] MEDS ORDERED: Propofol 10 mg/ml 100 ML BTL 100 ML ONE (12:15)
[2020-08-17] MEDS ORDERED: Bupivacaine 0.5% SDV PF 30ML VIAL ONE (12:36)
[2020-08-17] MEDS ORDERED: ROPIVACAINE 5 MG/ML 30 ML BTL (0.5%) ONE (12:38)
[2020-08-17] MEDS ORDERED: DiMENhydriNATE IV 50 mg/ml 1 ml VIAL IV PUSH PRN (13:41)
[2020-08-17] MEDS ORDERED: fentaNYL 100 mcg/2 ml 50 MCG/ML VIAL IV PRN (13:41)
[2020-08-17] MEDS ORDERED: Naloxone 0.4 mg VIAL 0.4 mg/ml 1 ml VIAL IV PRN (13:41)
[2020-08-17] MEDS ORDERED: Midazolam 2 mg/2 ml VIAL 1 mg/ml 2 ml VIAL (2 mg) ONE (14:31)
[2020-08-17] MEDS ORDERED: diPHENhydraMINE IV 50 MG/ML 1 ml VIAL (BENADRYL) IV PRN (15:03)
[2020-08-17] MEDS ORDERED: Magnesium Hydroxide LIQ 30 ML UDC PO PRN (15:03)
[2020-08-17] MEDS ORDERED: Lactulose 30 ml UDC PO PRN (15:03)
[2020-08-17] MEDS ORDERED: Ondansetron ODT 4 mg TAB 4 MG TAB PO PRN (15:03)
[2020-08-17] MEDS ORDERED: Ondansetron 4 mg VIAL 2 MG/ML 2 ml VIAL IV PRN (15:03)
[2020-08-17] MEDS ORDERED: diPHENhydraMINE 25 mg TAB PO PRN (15:03)
[2020-08-17] MEDS: Lactated Ringers 1000 ml BAG 1,000 ML IV SCH (16:21)
[2020-08-17] MEDS: Morphine 2 MG/ML SYRINGE IV PRN (17:38)
[2020-08-17] MEDS ORDERED: HYDROmorphone 1 MG/1 ML SYRINGE IV SLOW PU ONE (18:47)
[2020-08-17] MEDS ORDERED: Morphine ER 30 mg TAB ** extended release PO SCH (19:00)
[2020-08-17] MEDS ORDERED: NS 0.9% 50 ML 50 ML ONE (20:43)
[2020-08-17] MEDS: Morphine ER 15 mg TAB ** extended release PO SCH (20:52)
[2020-08-17] MEDS: Magnesium Hydroxide LIQ 30 ML UDC PO SCH (21:03)
[2020-08-17] MEDS: ceFAZolin 1 GM ADVAN 1 GM in NS 0.9% 50 ML 50 ML IVPB SCH (21:03)
[2020-08-18] MEDS: Lactated Ringers 1000 ml BAG 1,000 ML IV SCH (03:21)
[2020-08-18] MEDS: Morphine 2 MG/ML SYRINGE IV PRN (03:27)
[2020-08-18 05:05] LABS: Hematocrit 34 % (35-47); Hemoglobin 11.5 g/dL (12.0-16.0); Mean Platelet Volume 7.9 fL (7.4-10.4); Platelet Count 280 10^3/uL (150-450)
[2020-08-18] MEDS: ceFAZolin 1 GM ADVAN 1 GM in NS 0.9% 50 ML 50 ML IVPB SCH ×2 (05:19→12:14)
[2020-08-18 05:20] LABS: BUN/Creatinine Ratio 17.2 (8-20); Calcium 8.4 mg/dL (8.6-10.3); EGFR Non-African American 92.6 (>60)
[2020-08-18] MEDS: Morphine ER 15 mg TAB ** extended release PO SCH ×2 (07:41→18:06)
[2020-08-18] MEDS: Vitamin THERAPEUTIC TAB PO SCH (09:18)
[2020-08-18] MEDS: Magnesium Hydroxide LIQ 30 ML UDC PO SCH ×2 (09:20→20:53)
[2020-08-19] MEDS ORDERED: Morphine ER 15 mg TAB ** extended release PO SCH (07:30)
[2020-08-19] MEDS: Vitamin THERAPEUTIC TAB PO SCH (08:23)
[2020-08-19] MEDS: Magnesium Hydroxide LIQ 30 ML UDC PO SCH (08:25)
[2020-08-19 08:56] LABS: Hematocrit 33 % (35-47); Hemoglobin 11.1 g/dL (12.0-16.0); Mean Platelet Volume 8.6 fL (7.4-10.4); Platelet Count 258 10^3/uL (150-450)
[2020-08-19 11:09] VITALS: BP 107/64
== END 2020-08-19 12:40 | disposition home or self-care (01) ==
LOC: SSU 09:51 → OR 09:51
PROVIDERS: ADMIT Orthopaedic Surgery Adult Reconstructive Orthopaedic Surgery; ATTEND Orthopaedic Surgery Adult Reconstructive Orthopaedic Surgery

== ENCOUNTER 2021-01-16 06:36 | Observation (INO) ==
[~2021-01-16 06:36] MED LIST changes: +DiMENhydriNATE IV 50 mg/ml 1 ml VIAL IV PUSH ONE; -Midazolam 2 mg/2 ml VIAL 1 mg/ml 2 ml VIAL (2 mg) ONE; -fentaNYL 100 mcg/2 ml 50 MCG/ML VIAL ONE
[2021-01-16] MEDS ORDERED: Lidocaine 2% PF 5 ML VIAL ONE (07:07)
[2021-01-16] MEDS ORDERED: Propofol 10 MG/ML 20 ML BTL ONE ×2 (07:07→10:33)
[2021-01-16] MEDS ORDERED: ceFAZolin 2 GM PREMIX 2 GM/50 ML BAG ONE (07:13)
[2021-01-16] MEDS ORDERED: DiMENhydriNATE IV 50 mg/ml 1 ml VIAL ONE (07:13)
[2021-01-16] MEDS ORDERED: Ketamine HCL 50 mg/ml 10 ml VIAL (500 MG) ONE (07:15)
[2021-01-16] MEDS ORDERED: Midazolam 5 mg/5 ml VIAL 1 mg/ml 5 ml VIAL (5 mg) ONE (07:19)
[2021-01-16] MEDS ORDERED: fentaNYL 100 mcg/2 ml 50 MCG/ML VIAL ONE (07:19)
[2021-01-16] MEDS ORDERED: ROPIVACAINE 5 MG/ML 30 ML BTL (0.5%) ONE (07:45)
[2021-01-16] MEDS ORDERED: Bupivacaine 0.5% SDV PF 30ML VIAL ONE (08:11)
[2021-01-16] MEDS ORDERED: Dexamethasone IV 4 MG/ML VIAL 1 ml VIAL ONE (08:15)
[2021-01-16] MEDS ORDERED: Ondansetron 4 mg VIAL 2 MG/ML 2 ml VIAL ONE (08:54)
[2021-01-16] MEDS ORDERED: Ondansetron ODT 4 mg TAB 4 MG TAB PO PRN (11:39)
[2021-01-16] MEDS ORDERED: Magnesium Hydroxide LIQ 30 ML UDC PO PRN (11:39)
[2021-01-16] MEDS ORDERED: diPHENhydraMINE 25 mg TAB PO PRN (11:39)
[2021-01-16] MEDS ORDERED: Ondansetron 4 mg VIAL 2 MG/ML 2 ml VIAL IV PRN ×2 (11:39→12:05)
[2021-01-16] MEDS ORDERED: Morphine 2 MG/ML SYRINGE IV PRN (11:39)
[2021-01-16] MEDS ORDERED: Lactulose 30 ml UDC PO PRN (11:39)
[2021-01-16] MEDS ORDERED: diPHENhydraMINE IV 50 MG/ML 1 ml VIAL (BENADRYL) IV PRN (11:39)
[2021-01-16] MEDS ORDERED: Metoclopramide 5 MG/ML VIAL (10 mg) IV PRN (12:05)
[2021-01-16] MEDS ORDERED: HYDROcodone/ACETAMIN 5/325 mg TAB PO PRN (12:05)
[2021-01-16] MEDS ORDERED: Naloxone 0.4 mg VIAL 0.4 mg/ml 1 ml VIAL IV PRN (12:05)
[2021-01-16] MEDS ORDERED: fentaNYL 100 mcg/2 ml 50 MCG/ML VIAL IV PRN (12:05)
[2021-01-16] MEDS ORDERED: HYDROcodone/ACETAMIN 5/325 mg TAB ONE (12:19)
[2021-01-16] MEDS: Lactated Ringers 1000 ml BAG 1,000 ML IV SCH ×2 (12:57→22:37)
[2021-01-16] MEDS ORDERED: Phenylephrine IV 10 MG/ML 1 ml VIAL ONE (15:17)
[2021-01-16] MEDS: ceFAZolin 1 GM ADVAN 1 GM in NS 0.9% 50 ML 50 ML IVPB SCH (17:29)
[2021-01-16] MEDS: Magnesium Hydroxide LIQ 30 ML UDC PO SCH (20:20)
[2021-01-17] MEDS: ceFAZolin 1 GM ADVAN 1 GM in NS 0.9% 50 ML 50 ML IVPB SCH ×2 (00:11→08:58)
[2021-01-17 07:19] LABS: Hematocrit 33 % (35-47); Hemoglobin 11.3 g/dL (12.0-16.0); Mean Platelet Volume 8.3 fL (7.4-10.4); Platelet Count 299 10^3/uL (150-450)
[2021-01-17 07:31] LABS: Calcium 8.4 mg/dL (8.6-10.3); EGFR African American 114.1 (>60); EGFR Non-African American 94.3 (>60); Potassium 4.1 mmol/L (3.5-5.0)
[2021-01-17] MEDS: Magnesium Hydroxide LIQ 30 ML UDC PO SCH (08:57)
[2021-01-17] MEDS ORDERED: Vitamin THERAPEUTIC TAB PO SCH (09:00)
[2021-01-17 11:03] VITALS: BP 135/62
== END 2021-01-17 13:45 | disposition home or self-care (01) ==
LOC: SDS 06:36 → SSU 06:36
PROVIDERS: ADMIT Orthopaedic Surgery Adult Reconstructive Orthopaedic Surgery; ATTEND Orthopaedic Surgery Adult Reconstructive Orthopaedic Surgery

== ENCOUNTER 2022-07-16 09:54 | Observation (INO) ==
[~2022-07-16 09:54] MED LIST changes: -DiMENhydriNATE IV 50 mg/ml 1 ml VIAL IV PUSH ONE; +ceFAZolin 2 GM PREMIX 2 GM/50 ML BAG ONE; +ceFAZolin VIAL VIAL ONE
[2022-07-16] MEDS ORDERED: Lidocaine 2% w EPI 1:100,000 20 ML MDV VIAL ONE (10:49)
[2022-07-16] MEDS ORDERED: Ondansetron 4 mg VIAL 2 MG/ML 2 ml VIAL ONE (10:52)
[2022-07-16] MEDS ORDERED: Bupivacaine 0.25% SDV 30 ML ONE (10:52)
[2022-07-16] MEDS ORDERED: Propofol 10 MG/ML 20 ML BTL ONE (10:52)
[2022-07-16] MEDS ORDERED: Lidocaine 2% PF 5 ML VIAL ONE (10:52)
[2022-07-16] MEDS ORDERED: Rocuronium 50 mg VIAL 10 mg/ml 5 ml VIAL (50 mg) ONE (10:52)
[2022-07-16] MEDS ORDERED: Dexamethasone IV 4 MG/ML VIAL 1 ml VIAL ONE (10:52)
[2022-07-16] MEDS ORDERED: fentaNYL 100 mcg/2 ml 50 MCG/ML VIAL ONE (10:52)
[2022-07-16] MEDS ORDERED: Midazolam 2 mg/2 ml VIAL 1 mg/ml 2 ml VIAL (2 mg) ONE (10:54)
[2022-07-16] MEDS ORDERED: ROPIVACAINE 5 MG/ML 30 ML BTL (0.5%) ONE (10:58)
[2022-07-16] MEDS ORDERED: Lidocaine 1% MPF 5 ML VIAL ONE (10:58)
[2022-07-16] MEDS ORDERED: Phenylephrine 40 mcg/mL 10mL (400mcg) SYRINGE ONE (13:15)
[2022-07-16] MEDS ORDERED: Ondansetron ODT 4 mg TAB 4 MG TAB PO PRN (14:32)
[2022-07-16] MEDS ORDERED: Magnesium Hydroxide LIQ 30 ML UDC PO PRN (14:32)
[2022-07-16] MEDS ORDERED: Ondansetron 4 mg VIAL 2 MG/ML 2 ml VIAL IV PRN ×2 (14:32→15:15)
[2022-07-16] MEDS ORDERED: Lactulose 30 ml UDC PO PRN (14:32)
[2022-07-16] MEDS ORDERED: Morphine 2 MG/ML SYRINGE IV PRN (14:32)
[2022-07-16] MEDS ORDERED: HYDROmorphone 1 MG/1 ML SYRINGE IV PRN (15:15)
[2022-07-16] MEDS ORDERED: fentaNYL 100 mcg/2 ml 50 MCG/ML VIAL IV PRN (15:15)
[2022-07-16] MEDS ORDERED: Naloxone 0.4 mg VIAL 0.4 mg/ml 1 ml VIAL IV PRN (15:15)
[2022-07-16] MEDS ORDERED: Acetaminophen IV 1 GM/100ML 1,000 MG/100 ML BAG IV PRN (15:15)
[2022-07-16] MEDS: ceFAZolin 1 GM ADVAN 1 GM in NS 0.9% 50 ML 50 ML IVPB SCH (20:10)
[2022-07-16] MEDS: Lactated Ringers 1000 ml BAG 1,000 ML IV SCH (20:10)
[2022-07-16] MEDS: Magnesium Hydroxide LIQ 30 ML UDC PO SCH (22:27)
[2022-07-17] MEDS: ceFAZolin 1 GM ADVAN 1 GM in NS 0.9% 50 ML 50 ML IVPB SCH ×2 (03:36→12:38)
[2022-07-17] MEDS: Lactated Ringers 1000 ml BAG 1,000 ML IV SCH (06:23)
[2022-07-17 06:57] LABS: Hematocrit 29 % (35-47); Hemoglobin 10.1 g/dL (12.0-16.0); Mean Platelet Volume 8.3 fL (7.4-10.4); Platelet Count 283 10^3/uL (150-450)
[2022-07-17 07:17] LABS: Calcium 7.9 mg/dL (8.6-10.3); Potassium 4.2 mmol/L (3.5-5.0)
[2022-07-17] MEDS: Magnesium Hydroxide LIQ 30 ML UDC PO SCH (08:32)
[2022-07-17] MEDS ORDERED: Vitamin THERAPEUTIC TAB PO SCH (09:00)
[2022-07-17 11:22] VITALS: BP 147/76
== END 2022-07-17 15:27 | disposition home or self-care (01) ==
LOC: SSU 09:54 → OR 09:54 → SSU 19:55
PROVIDERS: ADMIT Orthopaedic Surgery Sports Medicine; ATTEND Orthopaedic Surgery Sports Medicine

== ENCOUNTER 2024-10-13 14:11 | Inpatient (IN) ==
[2024-10-13 16:47] LABS: Urine Appearance Clear; Urine Bilirubin Negative (Negative); Urine Blood Negative (Negative); Urine Color Light-Yellow; Urine Glucose Negative (Negative); Urine Ketones Negative (Negative); Urine Nitrite Negative (Negative); Urine Protein Negative (Negative); Urine Urobilinogen Negative (Negative)
[2024-10-13 16:53] LABS: Urine Bacteria Absent /HPF (Absent); Urine Red Blood Cell Trace(0-2/hpf) /HPF (0-Trace); Urine Squamous Epithelial Cell Present /HPF (Absent); Urine White Blood Cell Trace(0-5/hpf) /HPF (0-Trace)
[2024-10-13] MEDS: Lactated Ringers 1000 ml BAG 1,000 ML IV ONE (17:38)
[2024-10-13 17:53] LABS: ABS Eosinophils 0.1 10^3/uL (0.0-0.5); ABS Lymphocytes 2.3 10^3/uL (1.0-4.8); ABS Monocytes 0.4 10^3/uL (0.0-0.9); ABS Neutrophils 5.3 10^3/uL (1.5-7.6); Eosinophil % 0.6 %; Hematocrit 24.6 % (35-45); Hemoglobin 8.3 g/dL (11.5-14.3); Lymphocyte % 28.1 %; Mean Corpuscular Hemoglobin 31.9 pg (27-33); Mean Corpuscular Volume 93.8 fL (80-97); Mean Platelet Volume 7.8 fL (7.5-11.2); Platelet Count 379 10^3/uL (150-450); Red Blood Count 2.62 10^6/uL (3.63-4.92); Red Cell Distribution Width 14.5 % (12-17)
[2024-10-13 18:18] LABS: Albumin 3.6 g/dL (3.5-5.7); Albumin/Globulin Ratio 1.9 (1-3); Calcium 8.6 mg/dL (8.6-10.3); Creatinine, Serum 0.63 mg/dL (0.51-0.95); Globulin 1.9 g/dL (2-4); Magnesium 2.1 mg/dL (1.9-2.7); Potassium 4.6 mmol/L (3.5-5.0); Total Bilirubin 0.3 mg/dL (0.2-1.0); Total Protein 5.5 g/dL (6.4-8.9); eGFR CKD-EPI 94.8 (>60)
[2024-10-13 20:00] LABS: High Sensitivity Troponin 1 Hr 26 pg/mL (<15)
[2024-10-14] MEDS: Ferric Gluconate IV 250 MG in NS 0.9% 250 ml 200 ML IVPB SCH (02:56)
[2024-10-14 07:50] LABS: ABS Lymphocytes 2.2 10^3/uL (1.0-4.8); ABS Monocytes 0.4 10^3/uL (0.0-0.9); ABS Neutrophils 3.3 10^3/uL (1.5-7.6); Eosinophil % 0.8 %; Hematocrit 20.2 % (35-45); Lymphocyte % 36.4 %; Mean Corpuscular Hemoglobin 32.5 pg (27-33); Mean Corpuscular Hgb Conc 34.6 g/dL (31-36); Mean Platelet Volume 7.7 fL (7.5-11.2); Platelet Count 335 10^3/uL (150-450); Red Blood Count 2.15 10^6/uL (3.63-4.92); Red Cell Distribution Width 14.1 % (12-17)
[2024-10-14 08:23] LABS: Creatinine, Serum 0.66 mg/dL (0.51-0.95); Potassium 4.3 mmol/L (3.5-5.0); eGFR CKD-EPI 93.7 (>60)
[2024-10-14 08:38] LABS: TSH Ultra Thyroid Stim Horm 3.5 mcIU/mL (0.34-5.60)
[2024-10-14 08:49] LABS: Folate 14.82 ng/mL (5.90-24.80)
[2024-10-14] MEDS: Pantoprazole VIAL 40 MG VIAL IV SCH (09:02)
[2024-10-14] MEDS: Sulfur Hexaflouride MICROSPHR 25 MG VIAL IV PRN (09:46)
[2024-10-14 11:10] LABS: High Sensitivity Troponin 1 Hr 31 pg/mL (<15)
[2024-10-14] MEDS ORDERED: Lidocaine 2% PF 5 ML VIAL ONE (14:07)
[2024-10-14] MEDS ORDERED: Propofol 10 MG/ML 20 ML BTL ONE (14:16)
[2024-10-14 15:10] LABS: Hematocrit 21.5 % (35-45); Hemoglobin 7.4 g/dL (11.5-14.3)
[2024-10-14] MEDS: Pantoprazole 80 mg in NS BAG 80 MG/100 ML BAG IV SCH (17:20)
[2024-10-14 20:58] LABS: Hematocrit 19.7 % (35-45); Hemoglobin 6.9 g/dL (11.5-14.3)
[2024-10-14 23:05] LABS: High Sensitivity Troponin 1 Hr 23 pg/mL (<15)
[2024-10-15 01:05] LABS: Hematocrit 20.9 % (35-45); Hemoglobin 7.2 g/dL (11.5-14.3)
[2024-10-15 06:48] LABS: Anion Gap 6 mmol/L (2-16); Blood Urea Nitrogen 31 mg/dL (6-24); CO2 Carbon Dioxide 23 mmol/L (22-32); Calcium 7.6 mg/dL (8.6-10.3); Chloride 109 mmol/L (101-111); Creatinine, Serum 0.59 mg/dL (0.51-0.95); Glucose 89 mg/dL (70-100); Magnesium 2.1 mg/dL (1.9-2.7); Sodium 138 mmol/L (135-145); eGFR CKD-EPI 96.3 (>60)
[2024-10-15 07:45] LABS: ABS Basophils 0.1 10^3/uL (0.0-0.1); ABS Eosinophils 0.1 10^3/uL (0.0-0.5); ABS Lymphocytes 2.3 10^3/uL (1.0-4.8); ABS Monocytes 0.6 10^3/uL (0.0-0.9); ABS Neutrophils 3.7 10^3/uL (1.5-7.6); ABS Nucleated RBC 0.01 10^3/ul; Eosinophil % 1.3 %; Hematocrit 22.8 % (35-45); Hemoglobin 8.1 g/dL (11.5-14.3); Lymphocyte % 34.9 %; Mean Corpuscular Hemoglobin 32.4 pg (27-33); Mean Corpuscular Hgb Conc 35.5 g/dL (31-36); Mean Corpuscular Volume 91.2 fL (80-97); Mean Platelet Volume 8.3 fL (7.5-11.2); Nucleated Red Blood Cells % 0.2 %/100WBC (0.0-0.8); Platelet Count 276 10^3/uL (150-450); Red Cell Distribution Width 16.4 % (12-17); White Blood Count 6.7 10^3/uL (3.8-11.8)
[2024-10-15 07:50] LABS: Vitamin B12 1439 pg/mL (180-914)
[2024-10-15 08:08] LABS: Phosphorus 3.5 mg/dL (2.5-5.0); Potassium Redraw 4.1 mmol/L (3.5-5.0)
[2024-10-15 15:45] LABS: Hematocrit 21.4 % (35-45); Hemoglobin 7.5 g/dL (11.5-14.3)
[2024-10-15 23:24] LABS: Hematocrit 21.1 % (35-45); Hemoglobin 7.3 g/dL (11.5-14.3)
[2024-10-16 06:38] LABS: ABS Basophils 0.1 10^3/uL (0.0-0.1); ABS Eosinophils 0.2 10^3/uL (0.0-0.5); ABS Lymphocytes 1.9 10^3/uL (1.0-4.8); ABS Monocytes 0.6 10^3/uL (0.0-0.9); ABS Neutrophils 3.7 10^3/uL (1.5-7.6); ABS Nucleated RBC 0.01 10^3/ul; Eosinophil % 2.8 %; Hematocrit 19.3 % (35-45); Hemoglobin 6.8 g/dL (11.5-14.3); Lymphocyte % 29.9 %; Mean Corpuscular Hemoglobin 32.8 pg (27-33); Mean Corpuscular Hgb Conc 35.2 g/dL (31-36); Mean Corpuscular Volume 93.1 fL (80-97); Nucleated Red Blood Cells % 0.1 %/100WBC (0.0-0.8); Platelet Count 264 10^3/uL (150-450); Red Blood Count 2.08 10^6/uL (3.63-4.92); Red Cell Distribution Width 16.2 % (12-17); White Blood Count 6.5 10^3/uL (3.8-11.8)
[2024-10-16 07:16] LABS: Calcium 7.9 mg/dL (8.6-10.3); Creatinine, Serum 0.64 mg/dL (0.51-0.95); Potassium 3.8 mmol/L (3.5-5.0); eGFR CKD-EPI 94.4 (>60)
[2024-10-16 14:55] LABS: Hematocrit 23.8 % (35-45); Hemoglobin 8.4 g/dL (11.5-14.3)
[2024-10-16] MEDS: Pantoprazole 80 mg in NS BAG 80 MG/100 ML BAG IV SCH (22:24)
[2024-10-16 23:21] LABS: Hematocrit 22.9 % (35-45); Hemoglobin 7.7 g/dL (11.5-14.3)
[2024-10-17 07:28] LABS: ABS Basophils 0.1 10^3/uL (0.0-0.1); ABS Eosinophils 0.2 10^3/uL (0.0-0.5); ABS Lymphocytes 1.7 10^3/uL (1.0-4.8); ABS Monocytes 0.7 10^3/uL (0.0-0.9); ABS Neutrophils 3.2 10^3/uL (1.5-7.6); ABS Nucleated RBC 0.03 10^3/ul; Eosinophil % 4.2 %; Hematocrit 22.9 % (35-45); Hemoglobin 7.9 g/dL (11.5-14.3); Lymphocyte % 28.9 %; Mean Corpuscular Hemoglobin 32.3 pg (27-33); Mean Corpuscular Hgb Conc 34.3 g/dL (31-36); Mean Corpuscular Volume 94.1 fL (80-97); Mean Platelet Volume 9.1 fL (7.5-11.2); Nucleated Red Blood Cells % 0.4 %/100WBC (0.0-0.8); Platelet Count 230 10^3/uL (150-450); Red Blood Count 2.43 10^6/uL (3.63-4.92); Red Cell Distribution Width 16.7 % (12-17); White Blood Count 5.9 10^3/uL (3.8-11.8)
[2024-10-17 12:34] LABS: Hematocrit 23.6 % (35-45); Hemoglobin 8.1 g/dL (11.5-14.3)
[2024-10-18 06:33] LABS: ABS Eosinophils 0.2 10^3/uL (0.0-0.5); ABS Lymphocytes 1.6 10^3/uL (1.0-4.8); ABS Monocytes 0.7 10^3/uL (0.0-0.9); ABS Neutrophils 3.9 10^3/uL (1.5-7.6); Eosinophil % 3.6 %; Hematocrit 21.9 % (35-45); Hemoglobin 7.7 g/dL (11.5-14.3); Lymphocyte % 24.9 %; Mean Corpuscular Hgb Conc 35.3 g/dL (31-36); Mean Corpuscular Volume 93.6 fL (80-97); Mean Platelet Volume 7.8 fL (7.5-11.2); Platelet Count 313 10^3/uL (150-450); Red Blood Count 2.34 10^6/uL (3.63-4.92); Red Cell Distribution Width 16.2 % (12-17); White Blood Count 6.5 10^3/uL (3.8-11.8)
[2024-10-18 08:05] LABS: Calcium 7.9 mg/dL (8.6-10.3); Creatinine, Serum 0.67 mg/dL (0.51-0.95); Potassium 3.8 mmol/L (3.5-5.0); eGFR CKD-EPI 93.4 (>60)
[2024-10-18 09:10] VITALS: BP 114/67
== END 2024-10-18 13:19 | disposition home or self-care (01) | DRG 378 ==
LOC: ED 14:11 → EDHOLD 14:11 → SUATTDRO 22:59 → MEDTELE 10-14 00:28 → SUATTDRO 10-14 12:00 → MED 10-17 00:31
PROVIDERS: ADMIT Internal Medicine; ATTEND Hospitalist
PROC: O.GIEGD (2024-10-14 13:35)